=== PATIENT | female | born 1940 | race Hispanic/Latino ===

== ENCOUNTER 2017-01-12 10:58 | Emergency (ER) | payer MEDICARE, BC ==
[2017-01-12 12:18] LABS: HEMATOCRIT 40.8 % (37.0-47.0); IMMATURE GRANULOCYTES 0.1 % (0.0-1.0); MEAN CELL VOLUME 89.1 fL CALC (80.0-100.0); MEAN CORPUSCULAR HGB 28.4 pG CALC (26.0-32.0); MEAN CORPUSCULAR HGB CONC 31.9 g/L CALC (32.0-36.0); NEUT# 3.72 thou/uL (2.00-7.15); RED BLOOD COUNT 4.58 mill/uL (4.20-5.60); RED CELL DISTRI WIDTH 13.4 % (11.5-15.5)
[2017-01-12 12:29] LABS: ALBUMIN 4.1 g/dL (3.2-5.0); ALKALINE PHOSPHATASE 82 u/l (38-126); AMYLASE 82 u/l (30-110); ANION GAP 18 (6-22 (CALC)); BILIRUBIN, TOTAL 0.4 mg/dL (0.0-1.4); BUN 22 mg/dL (8-23); BUN/CREATININE RATIO 28 (12-20 (CALC)); CALCIUM 9.3 mg/dL (8.4-10.2); CARBON DIOXIDE 23 mmol/l (22-30); CHLORIDE 104 mmol/l (95-108); CREATININE 0.8 mg/dL (0.5-1.0); GFR > 60 ML/MIN (>=60 (CALC)); GFR FOR AFR.AMER. > 60 ML/MIN (>=60 (CALC)); GLUCOSE 227 mg/dL (82-115); LIPASE 183 u/l (23-300); POTASSIUM 4.7 mmol/l (3.5-5.1); SGOT/AST 26 u/l (9-36); SGPT/ALT 34 u/l (11-66); SODIUM 140 mmol/l (137-146); TOTAL PROTEIN 7.6 g/dL (6.3-8.2)
[2017-01-12 12:40] LABS: MYOGLOBIN 35 ng/mL (0 - 62)
[2017-01-12] MEDS ORDERED: METFORMIN500 MG PO (12:56)
[2017-01-12] MEDS ORDERED: OMEPRAZOLE10 MG PO (12:57)
[2017-01-12] MEDS ORDERED: DIOVAN80 MG PO (12:58)
[2017-01-12] MEDS ORDERED: SYNTHROID50 MCG PO (12:59)
[2017-01-12] MEDS ORDERED: GLIPIZIDE ER2.5 MG PO (12:59)
[2017-01-12] MEDS ORDERED: CYCLOBENZAPR10 MG PO (13:02)
[2017-01-12] MEDS ORDERED: SINGULAIR10 MG PO (13:02)
[2017-01-12] MEDS ORDERED: MIRTAZAPINE7.5 MG PO (13:03)
[2017-01-12] MEDS ORDERED: ADVAIR DISK1 (13:03)
[2017-01-12] MEDS ORDERED: CRESTOR40 MG PO (13:04)
[2017-01-12] MEDS ORDERED: METOPROL TAR25 MG PO (13:05)
[2017-01-12] MEDS ORDERED: KEFLEX500 MG PO (13:10)
[2017-01-12] MEDS ORDERED: BACTRIM DS1 TAB PO (13:11)
[2017-01-12] MEDS ORDERED: AUGMENTIN500TAB PO (14:20)
[2017-01-12] MEDS ORDERED: ZOFRAN4 MG/TAB PO (14:20)
[2017-01-12 14:45] VITALS: BP 115/53
== END 2017-01-12 15:00 | disposition home or self-care (01) ==
LOC: ED 10:58
PROVIDERS: Emergency Medicine
DX: L03.116 Cellulitis of left lower limb (principal); R11.2 Nausea with vomiting, unspecified; S80.862A Insect bite (nonvenomous), left lower leg, initial encounter; S80.861A Insect bite (nonvenomous), right lower leg, initial encounter; S90.862A Insect bite (nonvenomous), left foot, initial encounter; S90.861A Insect bite (nonvenomous), right foot, initial encounter; E11.9 Type 2 diabetes mellitus without complications; W57.XXXA Bitten or stung by nonvenomous insect and other nonvenomous arthropods, initial encounter
CPT/HCPCS: Q9967

== ENCOUNTER 2017-01-31 20:21 | Observation (INO) | payer MEDICARE, BC ==
[~2017-01-31] VITALS: Ht 144.8 cm; Wt 46.4 kg
[~2017-01-31 20:21] MED LIST: ADVAIR DISK1; AUGMENTIN500TAB PO; BACTRIM DS1 TAB PO; CRESTOR40 MG PO; CYCLOBENZAPR10 MG PO; DIOVAN80 MG PO; GLIPIZIDE ER2.5 MG PO; KEFLEX500 MG PO; METFORMIN500 MG PO; METOPROL TAR25 MG PO; MIRTAZAPINE7.5 MG PO; OMEPRAZOLE10 MG PO; SINGULAIR10 MG PO; SYNTHROID50 MCG PO; ZOFRAN4 MG/TAB PO
[2017-01-31 21:20] LABS: HEMATOCRIT 40.9 % (37.0-47.0); HEMOGLOBIN 13.3 g/dl (12.0-16.0); IMMATURE GRANULOCYTES 0.1 % (0.0-1.0); MEAN CELL VOLUME 87.8 fL CALC (80.0-100.0); MEAN CORPUSCULAR HGB 28.5 pG CALC (26.0-32.0); MEAN CORPUSCULAR HGB CONC 32.5 g/L CALC (32.0-36.0); NEUT# 4.7 thou/uL (2.00-7.15); RED BLOOD COUNT 4.66 mill/uL (4.20-5.60); RED CELL DISTRI WIDTH 13.5 % (11.5-15.5)
[2017-01-31 21:44] LABS: ALBUMIN 4.3 g/dL (3.2-5.0); ALKALINE PHOSPHATASE 88 u/l (38-126); ANION GAP 15 (6-22 (CALC)); BILIRUBIN, TOTAL 0.4 mg/dL (0.0-1.4); BUN 26 mg/dL (8-23); BUN/CREATININE RATIO 24 (12-20 (CALC)); CALCIUM 9.7 mg/dL (8.4-10.2); CARBON DIOXIDE 29 mmol/l (22-30); CHLORIDE 102 mmol/l (95-108); CREATININE 1.1 mg/dL (0.5-1.0); GFR 49 ML/MIN (>=60 (CALC)); GFR FOR AFR.AMER. 59 ML/MIN (>=60 (CALC)); GLUCOSE 194 mg/dL (82-115); POTASSIUM 4.4 mmol/l (3.5-5.1); SGOT/AST 28 u/l (9-36); SGPT/ALT 40 u/l (11-66); SODIUM 141 mmol/l (137-146); TOTAL PROTEIN 8.5 g/dL (6.3-8.2)
[2017-01-31 21:57] LABS: MYOGLOBIN 30 ng/mL (0 - 62)
[2017-01-31 22:19] LABS: URINE BILIRUBIN - DIPSTICK NEGATIVE (NEGATIVE); URINE BLOOD DIPSTICK TRACE-INTACT (NEGATIVE); URINE CLARITY CLEAR; URINE COLOR YELLOW; URINE GLUCOSE - DIPSTICK NEGATIVE (NEGATIVE); URINE KETONE NEGATIVE (NEGATIVE); URINE NITRITE - DIPSTICK NEGATIVE (Negative); URINE PROTEIN - DIPSTICK NEGATIVE (NEG-TRACE); URINE UROBILINOGEN - DIPSTICK 0.2 E.U./dL (0.2)
[2017-01-31 22:27] LABS: URINE LEUK ESTERASE SMALL (NEGATIVE)
[2017-01-31 22:28] LABS: URINE SQUAMOUS EPITHELIAL CELL FEW EPI/hpf (0-FEW)
[2017-02-01] VITALS: BP 192/62
[2017-02-01 01:19] VITALS: BP 161/64
[2017-02-01] MEDS ORDERED: GABAPENTIN100 MG PO (03:23)
[2017-02-01] MEDS ORDERED: LOPRESSOR25 M1 PO (03:24)
[2017-02-01] MEDS ORDERED: GLUCOTROL XL5 MG PO (03:26)
[2017-02-01] MEDS ORDERED: MIRTAZAPINE7.5 MG PO (03:26)
[2017-02-01] MEDS ORDERED: MONTELUKAST SOD10 MG PO (03:27)
[2017-02-01 04:25] VITALS: BP 144/66
[2017-02-01 08:57] VITALS: BP 134/60
[2017-02-01 11:24] VITALS: BP 132/59
[2017-02-01] MEDS ORDERED: SYMBICORT1 AE1 IN (14:49)
[2017-02-01] MEDS ORDERED: KEFLEX500 M1 PO (14:50)
== END 2017-02-01 15:15 | disposition home or self-care (01) ==
LOC: ED 20:21 → ED-I 22:04 → ED 22:20 → MS2 22:21
PROVIDERS: Emergency Medicine; ADMIT Internal Medicine; ATTEND Internal Medicine
DX: R00.2 Palpitations (principal); R07.9 Chest pain, unspecified; R68.84 Jaw pain; E11.9 Type 2 diabetes mellitus without complications; I10 Essential (primary) hypertension; E03.9 Hypothyroidism, unspecified; J45.909 Unspecified asthma, uncomplicated; K21.9 Gastro-esophageal reflux disease without esophagitis; S81.802A Unspecified open wound, left lower leg, initial encounter; L08.9 Local infection of the skin and subcutaneous tissue, unspecified; X58.XXXA Exposure to other specified factors, initial encounter; Z86.73 Personal history of transient ischemic attack (TIA), and cerebral infarction without residual deficits

== ENCOUNTER 2018-02-23 17:17 | Emergency (ER) | payer MEDICARE, BC ==
[~2018-02-23] VITALS: Ht 144.8 cm; Wt 43.2 kg
[~2018-02-23 17:17] MED LIST changes: +ASPIRIN81 MG PO; +GABAPENTIN100 MG PO; +GLUCOTROL XL5 MG PO; +KEFLEX500 M1 PO; +LOPRESSOR25 M1 PO; +MONTELUKAST SOD10 MG PO; +SYMBICORT1 AE1 IN; +XANAX0.25 MG PO
[2018-02-23] MEDS ORDERED: CITALOPRAM20 MG PO (17:31)
[2018-02-23] MEDS ORDERED: DIOVAN80 MG PO (17:33)
[2018-02-23] MEDS ORDERED: ADVAIR DISK1 INH (17:33)
[2018-02-23] MEDS ORDERED: ATORVASTATIN CA20 MG PO (17:33)
[2018-02-23] MEDS ORDERED: PROAIR HFA108 MCG/AC (17:34)
[2018-02-23 17:57] LABS: HEMATOCRIT 38.9 % (37.0-47.0); HEMOGLOBIN 12.5 g/dl (12.0-16.0); IMMATURE GRANULOCYTES 0.2 % (0.0-5.0); MEAN CELL VOLUME 89.6 fL CALC (80.0-100.0); MEAN CORPUSCULAR HGB 28.8 pG CALC (26.0-32.0); MEAN CORPUSCULAR HGB CONC 32.1 g/L CALC (32.0-36.0); NEUT# 5.04 thou/uL (2.00-7.15); RED BLOOD COUNT 4.34 mill/uL (4.20-5.60); RED CELL DISTRI WIDTH 12.7 % (11.5-15.5)
[2018-02-23 18:03] LABS: URINE BILIRUBIN - DIPSTICK NEGATIVE (NEGATIVE); URINE BLOOD DIPSTICK SMALL (NEGATIVE); URINE COLOR YELLOW; URINE GLUCOSE - DIPSTICK NEGATIVE (NEGATIVE); URINE KETONE NEGATIVE (NEGATIVE); URINE LEUK ESTERASE NEGATIVE (NEGATIVE); URINE NITRITE - DIPSTICK NEGATIVE (Negative); URINE PH 7.5 (4.5-8.0); URINE PROTEIN - DIPSTICK NEGATIVE (NEG-TRACE); URINE UROBILINOGEN - DIPSTICK 0.2 E.U./dL (0.2)
[2018-02-23 18:10] LABS: URINE CLARITY CLEAR
[2018-02-23 18:11] LABS: URINE SQUAMOUS EPITHELIAL CELL FEW EPI/hpf (0-FEW); URINE WBC 0-2 WBC/hpf (0-5)
[2018-02-23 18:19] LABS: ALBUMIN 3.9 g/dL (3.2-5.0); ALKALINE PHOSPHATASE 70 u/l (38-126); ANION GAP 12 (6-22 (CALC)); BILIRUBIN, TOTAL 0.2 mg/dL (0.0-1.4); BUN 21 mg/dL (8-23); BUN/CREATININE RATIO 28 (12-20 (CALC)); CARBON DIOXIDE 29 mmol/l (22-30); CHLORIDE 103 mmol/l (95-108); CREATININE 0.8 mg/dL (0.5-1.0); GFR > 60 ML/MIN (>=60 (CALC)); GFR FOR AFR.AMER. > 60 ML/MIN (>=60 (CALC)); LIPASE 212 u/l (23-300); POTASSIUM 4.3 mmol/l (3.5-5.1); SGOT/AST 24 u/l (9-36); SODIUM 140 mmol/l (137-146); TOTAL PROTEIN 7.3 g/dL (6.3-8.2)
[2018-02-23] MEDS ORDERED: PEPCID20 MG PO (20:07)
[2018-02-23] MEDS ORDERED: CIPROFLOXACN500 MG PO (20:07)
[2018-02-23 20:19] VITALS: BP 173/79
== END 2018-02-23 20:21 | disposition home or self-care (01) ==
LOC: ED 17:17
PROVIDERS: Family Medicine
DX: R10.33 Periumbilical pain (principal); M54.5 Low back pain; I10 Essential (primary) hypertension
CPT/HCPCS: Q9967

== ENCOUNTER 2018-07-09 15:02 | Emergency (ER) | payer MEDICARE, BC ==
[~2018-07-09] VITALS: Ht 144.8 cm; Wt 55.0 kg
[~2018-07-09 15:02] MED LIST changes: +ADVAIR DISK1 INH; +ATORVASTATIN CA20 MG PO; +CIPROFLOXACN500 MG PO; +CITALOPRAM20 MG PO; +PEPCID20 MG PO; +PROAIR HFA108 MCG/AC
[2018-07-09 17:42] LABS: HEMOGLOBIN 12.7 g/dl (12.0-16.0); IMMATURE GRANULOCYTES 0.1 % (0.0-5.0); MEAN CELL VOLUME 89.5 fL CALC (80.0-100.0); MEAN CORPUSCULAR HGB 28.4 pG CALC (26.0-32.0); MEAN CORPUSCULAR HGB CONC 31.8 g/L CALC (32.0-36.0); NEUT# 4.94 thou/uL (2.00-7.15); RED BLOOD COUNT 4.47 mill/uL (4.20-5.60); RED CELL DISTRI WIDTH 13.1 % (11.5-15.5)
[2018-07-09 18:02] LABS: ALBUMIN 3.9 g/dL (3.2-5.0); ALKALINE PHOSPHATASE 68 u/l (38-126); ANION GAP 14 (6-22 (CALC)); BILIRUBIN, TOTAL 0.5 mg/dL (0.0-1.4); BUN 14 mg/dL (8-23); BUN/CREATININE RATIO 19 (12-20 (CALC)); CARBON DIOXIDE 31 mmol/l (22-30); CHLORIDE 96 mmol/l (95-108); CREATININE 0.7 mg/dL (0.5-1.0); GFR > 60 ML/MIN (>=60 (CALC)); GFR FOR AFR.AMER. > 60 ML/MIN (>=60 (CALC)); POTASSIUM 4.9 mmol/l (3.5-5.1); SGOT/AST 21 u/l (9-36); SODIUM 136 mmol/l (137-146); TOTAL PROTEIN 7.1 g/dL (6.3-8.2)
[2018-07-09 18:54] LABS: URINE BILIRUBIN - DIPSTICK NEGATIVE (NEGATIVE); URINE BLOOD DIPSTICK SMALL (NEGATIVE); URINE COLOR YELLOW; URINE GLUCOSE - DIPSTICK NEGATIVE (NEGATIVE); URINE KETONE NEGATIVE (NEGATIVE); URINE LEUK ESTERASE NEGATIVE (NEGATIVE); URINE NITRITE - DIPSTICK NEGATIVE (Negative); URINE PH 6.5 (4.5-8.0); URINE PROTEIN - DIPSTICK NEGATIVE (NEG-TRACE); URINE UROBILINOGEN - DIPSTICK 0.2 E.U./dL (0.2)
[2018-07-09 19:02] LABS: URINE SQUAMOUS EPITHELIAL CELL FEW EPI/hpf (0-FEW)
[2018-07-09] MEDS ORDERED: BUPROPION150 M4 PO (19:08)
[2018-07-09] MEDS ORDERED: SYNTHROID50 MCG PO (19:13)
[2018-07-09] MEDS ORDERED: METFORMIN500 MG PO (19:14)
[2018-07-09] MEDS ORDERED: METOPROL TAR25 M1 PO (19:14)
[2018-07-10 00:39] VITALS: BP 112/54
== END 2018-07-10 00:40 | disposition home or self-care (01) ==
LOC: ED 15:02
PROVIDERS: Emergency Medicine
DX: R53.1 Weakness (principal); R50.9 Fever, unspecified; R51 Headache; I10 Essential (primary) hypertension; E11.9 Type 2 diabetes mellitus without complications; J45.909 Unspecified asthma, uncomplicated; Z86.73 Personal history of transient ischemic attack (TIA), and cerebral infarction without residual deficits; R22.0 Localized swelling, mass and lump, head
CPT/HCPCS: Q9967

== ENCOUNTER 2018-07-12 14:46 | Emergency (ER) | payer MEDICARE, BC ==
[~2018-07-12] VITALS: Ht 144.8 cm; Wt 44.5 kg
[~2018-07-12 14:46] MED LIST changes: +BUPROPION150 M4 PO; +METOPROL TAR25 M1 PO
[2018-07-12 15:36] LABS: HEMATOCRIT 35.7 % (37.0-47.0); HEMOGLOBIN 11.3 g/dl (12.0-16.0); IMMATURE GRANULOCYTES 0.3 % (0.0-5.0); MEAN CELL VOLUME 90.8 fL CALC (80.0-100.0); MEAN CORPUSCULAR HGB 28.8 pG CALC (26.0-32.0); MEAN CORPUSCULAR HGB CONC 31.7 g/L CALC (32.0-36.0); NEUT# 4.42 thou/uL (2.00-7.15); RED BLOOD COUNT 3.93 mill/uL (4.20-5.60); RED CELL DISTRI WIDTH 13.4 % (11.5-15.5)
[2018-07-12 15:50] LABS: ALBUMIN 3.9 g/dL (3.2-5.0); ALKALINE PHOSPHATASE 77 u/l (38-126); ANION GAP 16 (6-22 (CALC)); BILIRUBIN, TOTAL 0.3 mg/dL (0.0-1.4); BUN 16 mg/dL (8-23); BUN/CREATININE RATIO 15 (12-20 (CALC)); CARBON DIOXIDE 27 mmol/l (22-30); CHLORIDE 100 mmol/l (95-108); CREATININE 1.1 mg/dL (0.5-1.0); GFR 48 ML/MIN (>=60 (CALC)); GFR FOR AFR.AMER. 58 ML/MIN (>=60 (CALC)); POTASSIUM 4.9 mmol/l (3.5-5.1); SGOT/AST 30 u/l (9-36); SODIUM 138 mmol/l (137-146); TOTAL PROTEIN 7.6 g/dL (6.3-8.2)
[2018-07-12 16:20] LABS: TSH, 3RD GENERATION 2.82 uIU/mL (0.47 - 4.68)
[2018-07-12 17:24] LABS: URINE BILIRUBIN - DIPSTICK NEGATIVE (NEGATIVE); URINE BLOOD DIPSTICK MODERATE (NEGATIVE); URINE COLOR YELLOW; URINE GLUCOSE - DIPSTICK NEGATIVE (NEGATIVE); URINE KETONE NEGATIVE (NEGATIVE); URINE LEUK ESTERASE NEGATIVE (NEGATIVE); URINE NITRITE - DIPSTICK NEGATIVE (Negative); URINE PH 6.5 (4.5-8.0); URINE PROTEIN - DIPSTICK NEGATIVE (NEG-TRACE); URINE SPECIFIC GRAVITY 1.015; URINE UROBILINOGEN - DIPSTICK 0.2 E.U./dL (0.2)
[2018-07-12 17:36] LABS: URINE SQUAMOUS EPITHELIAL CELL FEW EPI/hpf (0-FEW); URINE WBC 0-2 WBC/hpf (0-5)
[2018-07-12] MEDS ORDERED: KEFLEX500 M1 PO (18:05)
[2018-07-12 18:07] VITALS: BP 124/65
== END 2018-07-12 18:15 | disposition home or self-care (01) ==
LOC: ED 14:46
PROVIDERS: Emergency Medicine
DX: R53.1 Weakness (principal); R50.9 Fever, unspecified; R51 Headache; Z86.73 Personal history of transient ischemic attack (TIA), and cerebral infarction without residual deficits; I10 Essential (primary) hypertension

== ENCOUNTER 2019-01-09 09:20 | Emergency (ER) | payer MEDICARE, BC ==
[~2019-01-09] VITALS: Ht 144.8 cm; Wt 47.0 kg
[~2019-01-09 09:20] MED LIST changes: -PROAIR HFA108 MCG/AC; +PROAIR HFA108 MCG/AC IN
[2019-01-09 11:01] LABS: HEMATOCRIT 43.4 % (37.0-47.0); HEMOGLOBIN 13.5 g/dl (12.0-16.0); IMMATURE GRANULOCYTES 0.1 % (0.0-5.0); MEAN CELL VOLUME 88.8 fL CALC (80.0-100.0); MEAN CORPUSCULAR HGB 27.6 pG CALC (26.0-32.0); MEAN CORPUSCULAR HGB CONC 31.1 g/L CALC (32.0-36.0); NEUT# 4.36 thou/uL (2.00-7.15); RED BLOOD COUNT 4.89 mill/uL (4.20-5.60); RED CELL DISTRI WIDTH 13.9 % (11.5-15.5)
[2019-01-09 11:01] LABS: URINE BILIRUBIN - DIPSTICK NEGATIVE (NEGATIVE); URINE BLOOD DIPSTICK TRACE-INTACT (NEGATIVE); URINE COLOR YELLOW; URINE GLUCOSE - DIPSTICK NEGATIVE (NEGATIVE); URINE KETONE NEGATIVE (NEGATIVE); URINE LEUK ESTERASE NEGATIVE (NEGATIVE); URINE NITRITE - DIPSTICK NEGATIVE (Negative); URINE PROTEIN - DIPSTICK NEGATIVE (NEG-TRACE); URINE UROBILINOGEN - DIPSTICK 0.2 E.U./dL (0.2)
[2019-01-09 11:11] LABS: ALBUMIN 4.3 g/dL (3.2-5.0); ALKALINE PHOSPHATASE 77 u/l (38-126); ANION GAP 11 (6-22 (CALC)); BILIRUBIN, TOTAL 0.4 mg/dL (0.0-1.4); BUN 29 mg/dL (8-23); BUN/CREATININE RATIO 27 (12-20 (CALC)); CARBON DIOXIDE 31 mmol/l (22-30); CHLORIDE 107 mmol/l (95-108); CREATININE 1.1 mg/dL (0.5-1.0); GFR 48 ML/MIN (>=60 (CALC)); GFR FOR AFR.AMER. 58 ML/MIN (>=60 (CALC)); POTASSIUM 4.7 mmol/l (3.5-5.1); SGOT/AST 32 u/l (9-36); SODIUM 144 mmol/l (137-146); TOTAL PROTEIN 8.2 g/dL (6.3-8.2)
[2019-01-09] MEDS ORDERED: VICODIN1 TA1 PO (12:10)
[2019-01-09 12:18] VITALS: BP 176/77
== END 2019-01-09 12:27 | disposition home or self-care (01) ==
LOC: ED 09:20
DX: S22.070A Wedge compression fracture of T9-T10 vertebra, initial encounter for closed fracture (principal); J90 Pleural effusion, not elsewhere classified; E11.9 Type 2 diabetes mellitus without complications; I10 Essential (primary) hypertension; V93.39XA Fall on board unspecified watercraft, initial encounter; Z86.73 Personal history of transient ischemic attack (TIA), and cerebral infarction without residual deficits; Z79.84 Long term (current) use of oral hypoglycemic drugs

== ENCOUNTER 2019-03-08 09:30 | Emergency (ER) | payer MEDICARE, BC ==
[~2019-03-08] VITALS: Ht 144.8 cm; Wt 43.2 kg
[~2019-03-08 09:30] MED LIST changes: +VICODIN1 TA1 PO
[2019-03-08] MEDS ORDERED: OMEGA-1 PO (09:45)
[2019-03-08] MEDS ORDERED: ALPRAZOLAM0.25 M1 PO (09:46)
[2019-03-08 10:44] LABS: HEMATOCRIT 40.7 % (37.0-47.0); HEMOGLOBIN 12.6 g/dl (12.0-16.0); IMMATURE GRANULOCYTES 0.3 % (0.0-5.0); MEAN CELL VOLUME 91.7 fL CALC (80.0-100.0); MEAN CORPUSCULAR HGB 28.4 pG CALC (26.0-32.0); NEUT# 3.97 thou/uL (2.00-7.15); RED BLOOD COUNT 4.44 mill/uL (4.20-5.60); RED CELL DISTRI WIDTH 13.8 % (11.5-15.5)
[2019-03-08 11:04] LABS: ALBUMIN 4.1 g/dL (3.2-5.0); ALKALINE PHOSPHATASE 83 u/l (38-126); ANION GAP 13 (6-22 (CALC)); BILIRUBIN, TOTAL 0.4 mg/dL (0.0-1.4); BUN 21 mg/dL (8-23); BUN/CREATININE RATIO 27 (12-20 (CALC)); CARBON DIOXIDE 26 mmol/l (22-30); CHLORIDE 104 mmol/l (95-108); CREATININE 0.8 mg/dL (0.5-1.0); GFR > 60 ML/MIN (>=60 (CALC)); GFR FOR AFR.AMER. > 60 ML/MIN (>=60 (CALC)); POTASSIUM 4.5 mmol/l (3.5-5.1); SGOT/AST 29 u/l (9-36); SODIUM 138 mmol/l (137-146)
[2019-03-08 11:16] LABS: MYOGLOBIN 42 ng/mL (0 - 62)
[2019-03-08 11:17] LABS: URINE BILIRUBIN - DIPSTICK NEGATIVE (NEGATIVE); URINE BLOOD DIPSTICK TRACE-LYSED (NEGATIVE); URINE COLOR YELLOW; URINE GLUCOSE - DIPSTICK NEGATIVE (NEGATIVE); URINE KETONE NEGATIVE (NEGATIVE); URINE LEUK ESTERASE NEGATIVE (NEGATIVE); URINE NITRITE - DIPSTICK NEGATIVE (Negative); URINE PH 6.5 (4.5-8.0); URINE PROTEIN - DIPSTICK NEGATIVE (NEG-TRACE); URINE SPECIFIC GRAVITY <=1.005; URINE UROBILINOGEN - DIPSTICK 0.2 E.U./dL (0.2)
[2019-03-08 11:39] VITALS: BP 157/70
== END 2019-03-08 12:14 | disposition home or self-care (01) ==
LOC: ED 09:30
PROVIDERS: Family Medicine
DX: R53.1 Weakness (principal); E11.9 Type 2 diabetes mellitus without complications; I10 Essential (primary) hypertension; Z86.73 Personal history of transient ischemic attack (TIA), and cerebral infarction without residual deficits; Z79.84 Long term (current) use of oral hypoglycemic drugs

== ENCOUNTER 2019-05-01 20:48 | Emergency (ER) | payer MEDICARE, BC ==
[~2019-05-01] VITALS: Ht 144.8 cm; Wt 43.2 kg
[~2019-05-01 20:48] MED LIST changes: +ALPRAZOLAM0.25 M1 PO; +OMEGA-1 PO; +REMERON15 MG PO
[2019-05-01 21:21] LABS: HEMATOCRIT 43.2 % (37.0-47.0); HEMOGLOBIN 13.9 g/dl (12.0-16.0); IMMATURE GRANULOCYTES 0.3 % (0.0-5.0); MEAN CELL VOLUME 88.5 fL CALC (80.0-100.0); MEAN CORPUSCULAR HGB 28.5 pG CALC (26.0-32.0); MEAN CORPUSCULAR HGB CONC 32.2 g/L CALC (32.0-36.0); NEUT# 11.3 thou/uL (2.00-7.15); RED BLOOD COUNT 4.88 mill/uL (4.20-5.60); RED CELL DISTRI WIDTH 12.8 % (11.5-15.5)
[2019-05-01 21:33] LABS: ALBUMIN 4.7 g/dL (3.2-5.0); ALKALINE PHOSPHATASE 110 u/l (38-126); ANION GAP 18 (6-22 (CALC)); BILIRUBIN, TOTAL 0.4 mg/dL (0.0-1.4); BUN 21 mg/dL (8-23); BUN/CREATININE RATIO 34 (12-20 (CALC)); CARBON DIOXIDE 27 mmol/l (22-30); CHLORIDE 99 mmol/l (95-108); CREATININE 0.6 mg/dL (0.5-1.0); GFR > 60 ML/MIN (>=60 (CALC)); GFR FOR AFR.AMER. > 60 ML/MIN (>=60 (CALC)); POTASSIUM 4.5 mmol/l (3.5-5.1); SGOT/AST 27 u/l (9-36); SODIUM 139 mmol/l (137-146); TOTAL PROTEIN 8.9 g/dL (6.3-8.2)
[2019-05-02 00:38] VITALS: BP 165/70
[2019-05-02 00:54] LABS: URINE BILIRUBIN - DIPSTICK NEGATIVE (NEGATIVE); URINE BLOOD DIPSTICK TRACE-INTACT (NEGATIVE); URINE COLOR YELLOW; URINE GLUCOSE - DIPSTICK >=1000 mg/dL (NEGATIVE); URINE KETONE 15 mg/dL (NEGATIVE); URINE LEUK ESTERASE NEGATIVE (NEGATIVE); URINE NITRITE - DIPSTICK NEGATIVE (Negative); URINE PROTEIN - DIPSTICK NEGATIVE (NEG-TRACE); URINE UROBILINOGEN - DIPSTICK 0.2 E.U./dL (0.2)
== END 2019-05-02 00:37 | disposition home or self-care (01) ==
LOC: ED 20:48
PROVIDERS: Emergency Medicine
DX: J45.909 Unspecified asthma, uncomplicated (principal); E11.9 Type 2 diabetes mellitus without complications; I10 Essential (primary) hypertension; Z86.73 Personal history of transient ischemic attack (TIA), and cerebral infarction without residual deficits; Z79.84 Long term (current) use of oral hypoglycemic drugs; R06.02 Shortness of breath

== ENCOUNTER 2019-05-04 10:01 | Observation (INO) | payer MEDICARE, BC ==
[~2019-05-04] VITALS: Ht 144.8 cm; Wt 44.0 kg
--- NOTE | 2019-05-04 10:19 | NUR ---
PT TO ROOM FOR EXAM
[2019-05-04 11:12] LABS: HEMATOCRIT 47.3 % (37.0-47.0); HEMOGLOBIN 14.8 g/dl (12.0-16.0); IMMATURE GRANULOCYTES 0.3 % (0.0-5.0); MEAN CELL VOLUME 89.8 fL CALC (80.0-100.0); MEAN CORPUSCULAR HGB 28.1 pG CALC (26.0-32.0); MEAN CORPUSCULAR HGB CONC 31.3 g/L CALC (32.0-36.0); NEUT# 9.02 thou/uL (2.00-7.15); RED BLOOD COUNT 5.27 mill/uL (4.20-5.60); RED CELL DISTRI WIDTH 13.2 % (11.5-15.5)
--- NOTE | 2019-05-04 11:25 | NUR ---
PT SITTING UP HI FOWLERS. NEB TX COMPLETED. IV ABT INFUSING. PT W/EVEN UNLABORED RESPIRATIONS. SPEECH CLEAR. REPORTS FEELING IMPROVED.
[2019-05-04 11:34] LABS: BUN 29 mg/dL (8-23); BUN/CREATININE RATIO 37 (12-20 (CALC)); CARBON DIOXIDE 29 mmol/l (22-30); CHLORIDE 98 mmol/l (95-108); CREATININE 0.8 mg/dL (0.5-1.0); GFR > 60 ML/MIN (>=60 (CALC)); GFR FOR AFR.AMER. > 60 ML/MIN (>=60 (CALC)); SODIUM 137 mmol/l (137-146)
[2019-05-04 11:36] LABS: ANION GAP 16 (6-22 (CALC))
[2019-05-04 11:37] LABS: POTASSIUM 5.6 mmol/l (3.5-5.1)
--- NOTE | 2019-05-04 12:09 | NUR ---
PT ASSISTED TO BSC. TOLERATED WELL. VOIDED APPROX 700 ML CLEAR URINE. RETURNED TO STRETCHER NO CHANGE IN SATS.
[2019-05-04 12:47] LABS: URINE BILIRUBIN - DIPSTICK NEGATIVE (NEGATIVE); URINE BLOOD DIPSTICK TRACE-INTACT (NEGATIVE); URINE COLOR YELLOW; URINE GLUCOSE - DIPSTICK >=1000 mg/dL (NEGATIVE); URINE KETONE NEGATIVE (NEGATIVE); URINE LEUK ESTERASE NEGATIVE (NEGATIVE); URINE NITRITE - DIPSTICK NEGATIVE (Negative); URINE PROTEIN - DIPSTICK NEGATIVE (NEG-TRACE); URINE UROBILINOGEN - DIPSTICK 0.2 E.U./dL (0.2)
--- NOTE | 2019-05-04 14:25 | NUR ---
PT W/RESP EVEN AND UNLABORED. SATS 95 2L/M VIA NC.
--- NOTE | 2019-05-04 15:25 | NUR ---
RX CONTACTED AND CONSULTED FOR MEDICATION RECONCILIATION.
--- NOTE | 2019-05-04 15:27 | NUR ---
REPORT CALLED TO BILL OH, ON MEDSURG. ADVISED OF ALL MEDS, TX. ATTACHMENTS
[2019-05-04 15:38] VITALS: BP 146/63
--- NOTE | 2019-05-04 15:58 | NUR ---
ASSESSMENT DONE. PT IS A&O X2 BUT FORGETFUL AT TIMES. SON IN ROOM TO HELP WITH QUESTIONS. PT LUNGS SOUND COARSE/WHEEZE. TELE IN PLACE. SON WANTS US TO USE PT OWN MEDICATION . EXPLAIN TO PT IF WE CARRY THE MEDICATION THEN WE CAN'T USE THE HOME MEDICATIONS. SAFETY PRECAUTIONS REINFORCED AND CALL LIGHT IN REACH.
[2019-05-04] MEDS ORDERED: MEGARED OMEGA-31 CAP PO (16:06)
[2019-05-04] MEDS ORDERED: MEDDOSEPAK PO (16:12)
--- NOTE | 2019-05-04 16:32 | NUR ---
RX CONSULTED AND CALLED FOR MEDICATION RECONCILIATION
--- NOTE | 2019-05-04 19:00 | NUR ---
REPORT FROM SERENA KHAN. PT SITTING UP IN BED. ALERT AND ORIENTED AT THIS TIME. SERENA TO TRANSLATE. PT DENIES ANY PAIN OR ANY CURRENT WANTS OR NEEDS. DISCUSSED POC. PT VERBALIZED UNDERSTANDING. CALL LIGHT WITHIN REACH. WILL CONTINUE TO MONITOR.
[2019-05-04 19:05] VITALS: BP 123/70
--- NOTE | 2019-05-04 23:15 | NUR ---
PT RESTING IN BED. NO APPARENT DISTRESS NOTED. ELIZABETH MARTÍNEZ TRANSLATED. PT DENIES ANY PAIN OR DISCOMFORT. CALL LIGHT WITHIN REACH. WILL CONTINUE TO MONITOR.
[2019-05-04 23:54] VITALS: BP 145/66
--- NOTE | 2019-05-05 03:46 | NUR ---
PT RESTING IN BED WITH EYES CLOSED. NO APPARENT DISTRESS NOTED. CALL LIGHT WITHIN REACH. WILL CONTINUE TO MONITOR.
[2019-05-05 03:47] VITALS: BP 123/68
[2019-05-05 04:49] LABS: HEMATOCRIT 41.8 % (37.0-47.0); HEMOGLOBIN 13.4 g/dl (12.0-16.0); IMMATURE GRANULOCYTES 0.3 % (0.0-5.0); MEAN CELL VOLUME 87.8 fL CALC (80.0-100.0); MEAN CORPUSCULAR HGB 28.2 pG CALC (26.0-32.0); MEAN CORPUSCULAR HGB CONC 32.1 g/L CALC (32.0-36.0); NEUT# 12.1 thou/uL (2.00-7.15); RED BLOOD COUNT 4.76 mill/uL (4.20-5.60)
[2019-05-05 05:12] LABS: ANION GAP 14 (6-22 (CALC)); BUN 21 mg/dL (8-23); BUN/CREATININE RATIO 33 (12-20 (CALC)); CARBON DIOXIDE 26 mmol/l (22-30); CHLORIDE 100 mmol/l (95-108); CREATININE 0.7 mg/dL (0.5-1.0); GFR > 60 ML/MIN (>=60 (CALC)); GFR FOR AFR.AMER. > 60 ML/MIN (>=60 (CALC)); POTASSIUM 5.1 mmol/l (3.5-5.1); SODIUM 135 mmol/l (137-146)
[2019-05-05 05:13] LABS: MAGNESIUM 2.4 mg/dL (1.6-2.3)
[2019-05-05 07:45] VITALS: BP 118/67
--- NOTE | 2019-05-05 07:50 | NUR ---
ASSESSMENT IS COMPLETED: IV SITE IS FREE FROM REDNESS OR EDEMA. HR IS REG,PULSES ARE STRONG X4, ABD IS SOFT WITH ACTIVE BS. BREATH SOUNDS ARE COARSE, O2 @ 2LITERS WITH NC. TELE MONITOR IN PLACE., CONTINUE TO OSEBRVE AND MONITOR.
[2019-05-05 10:53] VITALS: BP 179/54
--- NOTE | 2019-05-05 12:44 | NUR ---
PT IS SITTING IN THE CHAIR. NO DISTRESS NOTED. IV SITE IS FREE FROM REDNESS OR EDEMA. CONTINUE TO OBSERVE AND MONITOR.
[2019-05-05 15:17] VITALS: BP 148/59
--- NOTE | 2019-05-05 16:00 | NUR ---
PT IS RELAXING IN BED HAS BEEN IN THE CHAIR, NO DISTRESS NOTED. IV SITE IS FREE FROM REDNESS OR EDEAM.
[2019-05-05 19:05] VITALS: BP 150/65
--- NOTE | 2019-05-05 19:20 | NUR ---
REPORT RECEIVED FROM EDUIN NARVAEZ. PT RESTING IN BED, SON AT BEDSIDE. SAFETY PRECAUTIONS IN PLACE. WILL CONTINUE TO MONITOR.
--- NOTE | 2019-05-05 21:15 | NUR ---
PT RESTING IN BED. ALERT AND ORIENTED. RESPIRATIONS EVEN AND UNLABORED ON RA. WHEEZES NOTED THROUGH OUT LUNGS. PEDAL PULSES STRONG. PT DENIES ANY PAIN OR DISCOMFORT AT THIS TIME. SAFETY PRECAUTIONS IN PLACE. WILL CONTINUE TO MONITOR.
[2019-05-06 00:10] VITALS: BP 141/57
--- NOTE | 2019-05-06 00:12 | NUR ---
PT RESTING IN BED. NO S/S OF DISTRESS AT THIS TIME. SAFETY PRECAUTIONS IN PLACE. WILL CONTINUE TO MONITOR.
[2019-05-06 03:45] VITALS: BP 132/65
--- NOTE | 2019-05-06 04:02 | NUR ---
PT RESTING IN BED. TELE IN PLACE. RESPIRATIONS EVEN AND UNLABORED. NO S/S OF DISTRESS AT THIS TIME. WILL CONTINUE TO MONITOR.
[2019-05-06 05:24] LABS: HEMATOCRIT 43.1 % (37.0-47.0); HEMOGLOBIN 13.6 g/dl (12.0-16.0); MEAN CELL VOLUME 89.8 fL CALC (80.0-100.0); MEAN CORPUSCULAR HGB 28.3 pG CALC (26.0-32.0); MEAN CORPUSCULAR HGB CONC 31.6 g/L CALC (32.0-36.0); NEUT# 21.55 thou/uL (2.00-7.15); RED BLOOD COUNT 4.8 mill/uL (4.20-5.60); RED CELL DISTRI WIDTH 13.5 % (11.5-15.5)
[2019-05-06 05:47] LABS: BUN 24 mg/dL (8-23); BUN/CREATININE RATIO 41 (12-20 (CALC)); CARBON DIOXIDE 25 mmol/l (22-30); CHLORIDE 103 mmol/l (95-108); CREATININE 0.6 mg/dL (0.5-1.0); GFR > 60 ML/MIN (>=60 (CALC)); GFR FOR AFR.AMER. > 60 ML/MIN (>=60 (CALC)); MAGNESIUM 2.2 mg/dL (1.6-2.3); SODIUM 138 mmol/l (137-146)
[2019-05-06 06:16] LABS: ANION GAP 15 (6-22 (CALC))
[2019-05-06 06:17] LABS: POTASSIUM 5.4 mmol/l (3.5-5.1)
[2019-05-06 08:25] VITALS: BP 173/67
--- NOTE | 2019-05-06 08:25 | NUR ---
ASSESSMENT IS COMPLETED: IV SITE IS FREE FROM REDNESS OR EDEMA. HR IS REG,PULSES ARE STRONG X4, ABD IS SOFT WITH ACTIVE BS. BREATH SOUNDS ARE CLEAR,BILATERALLY. NO C/O SOB, TELE MONITOR IN PLACE. CONTINUE TO OSEBRVE AND MONITOR.
[2019-05-06 11:00] VITALS: BP 149/72
--- NOTE | 2019-05-06 11:29 | NUR ---
PT TELE MONITOR SHOWED HRT RATE OF 152 AND EKG RAPID RESPONSE IN THE ROOM. PT CONVERTED TO SR AFTER BEARING DOWN AND COUGING ABLE TO CONVERT TO SR FROM ST. PT TOLERATING WELL,
--- NOTE | 2019-05-06 12:15 | NUR ---
PT HAS BEEN RELAXING IN BED WITH NO DISTRESS NOTED. IV SITE IS FREE FROM REDNESS ORE FELI.
[2019-05-06 15:00] VITALS: BP 130/69
--- NOTE | 2019-05-06 16:15 | NUR ---
PT IS RELAXING IN BED WITH NO DISTRESS NOTED.
[2019-05-06] MEDS ORDERED: METOPROL TAR25 MG PO (17:52)
[2019-05-06] MEDS ORDERED: IPRATROPIU0.5 MG/3 M IN (17:52)
[2019-05-06] MEDS ORDERED: ONDANSETRON4 MG PO (18:02)
--- NOTE | 2019-05-06 18:20 | NUR ---
IV SITES ARE DISCONTINUED CATHETER INTACT. NO REDNESS OR EDEMA. DISCHARGE INSTRUCTIONS GIVEN TO FAMILY AND VERBALIZED UNDERSTANDING., PT ANXIOUS TO GO HOME. ABLE TO AMBULATE TO THE BATHROOM TO GET DRESSED. Discharge instructions given. Patient verbalizes understanding of same. Discharged in stable condition via Wheelchair to Home with family. All belongings sent with pt.
== END 2019-05-06 18:30 | disposition home or self-care (01) ==
LOC: ED 10:01 → ED-I 11:58 → ED 11:58 → ED-I 11:58 → ED 12:01 → ED-I 12:02 → MS2 12:02
PROVIDERS: Family Medicine; Nurse Practitioner Family; ADMIT Internal Medicine; ATTEND Internal Medicine
PROC: 3E02340 Introduction of Influenza Vaccine into Muscle, Percutaneous Approach (ICD-10-PCS; principal; 2019-05-05)
PROC: 3E0234Z Introduction of Serum, Toxoid and Vaccine into Muscle, Percutaneous Approach (ICD-10-PCS; 2019-05-05)
DX: J45.901 Unspecified asthma with (acute) exacerbation (principal); I47.1 Supraventricular tachycardia; J44.9 Chronic obstructive pulmonary disease, unspecified; I10 Essential (primary) hypertension; E11.40 Type 2 diabetes mellitus with diabetic neuropathy, unspecified; E78.5 Hyperlipidemia, unspecified; E89.0 Postprocedural hypothyroidism; K21.9 Gastro-esophageal reflux disease without esophagitis; F41.9 Anxiety disorder, unspecified; F32.9 Major depressive disorder, single episode, unspecified; Z23 Encounter for immunization; Z79.84 Long term (current) use of oral hypoglycemic drugs; Z86.73 Personal history of transient ischemic attack (TIA), and cerebral infarction without residual deficits; Z63.4 Disappearance and death of family member
CPT/HCPCS: G0378; J1650

== ENCOUNTER 2019-05-14 10:30 | Observation (INO) | payer MEDICARE, BC ==
[~2019-05-14] VITALS: Ht 144.8 cm; Wt 43.5 kg
[~2019-05-14 10:30] MED LIST changes: +IPRATROPIU0.5 MG/3 M IN; +MEDDOSEPAK PO; +MEGARED OMEGA-31 CAP PO; +ONDANSETRON4 MG PO
[2019-05-14 11:22] LABS: HEMATOCRIT 41.1 % (37.0-47.0); HEMOGLOBIN 13.1 g/dl (12.0-16.0); IMMATURE GRANULOCYTES 0.5 % (0.0-5.0); MEAN CELL VOLUME 88.8 fL CALC (80.0-100.0); MEAN CORPUSCULAR HGB 28.3 pG CALC (26.0-32.0); MEAN CORPUSCULAR HGB CONC 31.9 g/L CALC (32.0-36.0); NEUT# 12.97 thou/uL (2.00-7.15); RED BLOOD COUNT 4.63 mill/uL (4.20-5.60); RED CELL DISTRI WIDTH 12.7 % (11.5-15.5)
[2019-05-14 11:35] LABS: ACT PARTIAL THROMBO TIME 25.5 SECONDS (20.0-32.5)
[2019-05-14 11:38] LABS: ALKALINE PHOSPHATASE 95 u/l (38-126); BILIRUBIN, TOTAL 0.4 mg/dL (0.0-1.4); BUN 23 mg/dL (8-23); BUN/CREATININE RATIO 27 (12-20 (CALC)); CARBON DIOXIDE 26 mmol/l (22-30); CHLORIDE 97 mmol/l (95-108); CREATININE 0.8 mg/dL (0.5-1.0); GFR > 60 ML/MIN (>=60 (CALC)); GFR FOR AFR.AMER. > 60 ML/MIN (>=60 (CALC)); LIPASE 199 u/l (23-300); POTASSIUM 4.7 mmol/l (3.5-5.1); SGOT/AST 19 u/l (9-36); TOTAL PROTEIN 7.3 g/dL (6.3-8.2)
[2019-05-14 11:46] LABS: ANION GAP 13 (6-22 (CALC)); SODIUM 131 mmol/l (137-146)
[2019-05-14 11:47] LABS: ALBUMIN 3.7 g/dL (3.2-5.0)
[2019-05-14 14:25] VITALS: BP 128/62
[2019-05-14 15:48] VITALS: BP 107/52
[2019-05-14 18:44] VITALS: BP 113/63
[2019-05-14 21:20] LABS: URINE BILIRUBIN - DIPSTICK NEGATIVE (NEGATIVE); URINE BLOOD DIPSTICK NEGATIVE (NEGATIVE); URINE COLOR YELLOW; URINE GLUCOSE - DIPSTICK >=1000 mg/dL (NEGATIVE); URINE KETONE NEGATIVE (NEGATIVE); URINE LEUK ESTERASE NEGATIVE (NEGATIVE); URINE NITRITE - DIPSTICK NEGATIVE (Negative); URINE PROTEIN - DIPSTICK NEGATIVE (NEG-TRACE); URINE UROBILINOGEN - DIPSTICK 0.2 E.U./dL (0.2)
[2019-05-14 23:05] VITALS: BP 116/67
[2019-05-15 04:07] VITALS: BP 130/57
[2019-05-15 07:48] VITALS: BP 133/64
[2019-05-15 11:00] VITALS: BP 126/54
[2019-05-15 15:19] VITALS: BP 115/51
== END 2019-05-15 16:54 | disposition home or self-care (01) ==
LOC: ED 10:30 → ED-I 13:04 → ED 13:22 → MS2 13:23
PROVIDERS: Nurse Practitioner Family; ADMIT Internal Medicine; ATTEND Internal Medicine
DX: R07.9 Chest pain, unspecified (principal); I10 Essential (primary) hypertension; E11.65 Type 2 diabetes mellitus with hyperglycemia; I47.1 Supraventricular tachycardia; J45.909 Unspecified asthma, uncomplicated; E78.5 Hyperlipidemia, unspecified; E03.9 Hypothyroidism, unspecified; K21.9 Gastro-esophageal reflux disease without esophagitis; Z86.73 Personal history of transient ischemic attack (TIA), and cerebral infarction without residual deficits; Z79.84 Long term (current) use of oral hypoglycemic drugs
CPT/HCPCS: G0378

== ENCOUNTER 2019-07-14 | Emergency (ER) | payer MEDICARE, BC | END 2019-07-14 11:08 | disposition home or self-care (01) | DX: M25.551 Pain in right hip (principal); E11.9 Type 2 diabetes mellitus without complications; I10 Essential (primary) hypertension; W19.XXXA Unspecified fall, initial encounter; Z86.73 Personal history of transient ischemic attack (TIA), and cerebral infarction without residual deficits; Z79.84 Long term (current) use of oral hypoglycemic drugs ==

== ENCOUNTER 2019-12-19 13:20 | Emergency (ER) | payer MEDICARE, BC ==
[~2019-12-19] VITALS: Ht 149.9 cm; Wt 40.9 kg
[2019-12-19 14:06] LABS: HEMATOCRIT 39.8 % (37.0-47.0); HEMOGLOBIN 12.5 g/dl (12.0-16.0); IMMATURE GRANULOCYTES 0.3 % (0.0-5.0); MEAN CELL VOLUME 87.7 fL CALC (80.0-100.0); MEAN CORPUSCULAR HGB 27.5 pG CALC (26.0-32.0); MEAN CORPUSCULAR HGB CONC 31.4 g/dL CAL (32.0-36.0); NEUT# 6.18 thou/uL (2.00-7.15); RED BLOOD COUNT 4.54 mill/uL (4.20-5.60); RED CELL DISTRI WIDTH 12.7 % (11.5-15.5)
[2019-12-19 14:11] LABS: URINE BILIRUBIN - DIPSTICK NEGATIVE (NEGATIVE); URINE BLOOD DIPSTICK NEGATIVE (NEGATIVE); URINE COLOR YELLOW; URINE GLUCOSE - DIPSTICK 250 mg/dL (NEGATIVE); URINE KETONE NEGATIVE (NEGATIVE); URINE LEUK ESTERASE NEGATIVE (NEGATIVE); URINE NITRITE - DIPSTICK NEGATIVE (Negative); URINE PH 5.5 (4.5-8.0); URINE PROTEIN - DIPSTICK NEGATIVE (NEG-TRACE); URINE SPECIFIC GRAVITY >=1.030; URINE UROBILINOGEN - DIPSTICK 0.2 E.U./dL (0.2)
[2019-12-19 14:32] LABS: ALBUMIN 4.1 g/dL (3.2-5.0); ALKALINE PHOSPHATASE 92 u/l (38-126); AMYLASE 79 u/l (30-110); ANION GAP 12 (6-22 (CALC)); BILIRUBIN, TOTAL 0.5 mg/dL (0.0-1.4); BUN 24 mg/dL (8-23); BUN/CREATININE RATIO 38 (12-20 (CALC)); CARBON DIOXIDE 28 mmol/l (22-30); CHLORIDE 100 mmol/l (95-108); CREATININE 0.6 mg/dL (0.5-1.0); GFR > 60 ML/MIN (>=60 (CALC)); GFR FOR AFR.AMER. > 60 ML/MIN (>=60 (CALC)); LIPASE 174 u/l (23-300); POTASSIUM 4.8 mmol/l (3.5-5.1); SGOT/AST 26 u/l (9-36); SODIUM 136 mmol/l (137-146); TOTAL PROTEIN 7.4 g/dL (6.3-8.2)
[2019-12-19 17:20] VITALS: BP 135/94
== END 2019-12-19 17:20 | disposition home or self-care (01) ==
LOC: ED 13:20
DX: K59.00 Constipation, unspecified (principal); E11.9 Type 2 diabetes mellitus without complications; I10 Essential (primary) hypertension; Z86.73 Personal history of transient ischemic attack (TIA), and cerebral infarction without residual deficits; Z79.84 Long term (current) use of oral hypoglycemic drugs
CPT/HCPCS: Q9967

== ENCOUNTER 2020-03-06 05:44 | Inpatient (IN) | payer MEDICARE, BC ==
[~2020-03-06] VITALS: Ht 149.9 cm; Wt 41.0 kg
[2020-03-06] VITALS (10 sets, daily range): BP systolic 99–147; BP diastolic 48–77
--- NOTE | 2020-03-06 05:45 | NUR ---
TO ROOM FOR TRIAGE.
[2020-03-06 06:29] LABS: HEMATOCRIT 39.9 % (37.0-47.0); HEMOGLOBIN 12.6 g/dl (12.0-16.0); IMMATURE GRANULOCYTES 0.2 % (0.0-5.0); MEAN CELL VOLUME 89.3 fL CALC (80.0-100.0); MEAN CORPUSCULAR HGB 28.2 pG CALC (26.0-32.0); MEAN CORPUSCULAR HGB CONC 31.6 g/dL CAL (32.0-36.0); NEUT# 7.99 thou/uL (2.00-7.15); RED BLOOD COUNT 4.47 mill/uL (4.20-5.60); RED CELL DISTRI WIDTH 13.1 % (11.5-15.5)
[2020-03-06 06:41] LABS: D-DIMER 0.4 mg/L (0.19-0.60)
[2020-03-06 06:43] LABS: ALBUMIN 4.4 g/dL (3.2-5.0); ALKALINE PHOSPHATASE 88 u/l (38-126); AMYLASE 82 u/l (30-110); ANION GAP 14 (6-22 (CALC)); BILIRUBIN, TOTAL 0.4 mg/dL (0.0-1.4); BUN 24 mg/dL (8-23); BUN/CREATININE RATIO 30 (12-20 (CALC)); CARBON DIOXIDE 26 mmol/l (22-30); CHLORIDE 100 mmol/l (95-108); CREATININE 0.8 mg/dL (0.5-1.0); GFR > 60 ML/MIN (>=60 (CALC)); GFR FOR AFR.AMER. > 60 ML/MIN (>=60 (CALC)); LIPASE 170 u/l (23-300); POTASSIUM 4.9 mmol/l (3.5-5.1); SGOT/AST 26 u/l (9-36); SODIUM 136 mmol/l (137-146); TOTAL PROTEIN 7.8 g/dL (6.3-8.2)
--- NOTE | 2020-03-06 06:47 | NUR ---
RESTING QUIETLY AWAITING TEST RESULTS
--- NOTE | 2020-03-06 07:00 | NUR ---
REPORT RECEIVED FROM BILL VIZCAINO.
[2020-03-06 07:01] LABS: ACT PARTIAL THROMBO TIME 23.8 SECONDS (20.0-32.5)
[2020-03-06 07:15] LABS: TSH, 3RD GENERATION 3.38 uIU/mL (0.47 - 4.68)
--- NOTE | 2020-03-06 07:20 | NUR ---
PT IN SVT, DR BANKS AWARE. STAT EKG COMPLETED. CRASH CART AT BEDSIDE. PADS PLACED ON PT. WILL CONTINUE TO MONITOR.
--- NOTE | 2020-03-06 07:30 | NUR ---
2ND EKG COMPLETED, PT RETURNED TO SINUS RHYTHM. VITALS STABLE ON MONITOR.
--- NOTE | 2020-03-06 08:45 | NUR ---
REPORT CALLED TO BILL RAYGOZA ICU.
--- NOTE | 2020-03-06 09:05 | NUR ---
PT ARRIVED TO ICU BED 1 VIA STRETCHER ACCOMPANIED BY ER NURSE AND SON. PT IS ALERT AND ORIENTED X3. EXPLAINED TO SON THAT SHE WOULD NOT BE ALLOWED VISITORS UNTIL COVID SWAB CAME BACK AND PT IS IGG POSITIVE. SON REQUESTED TO GET APPROVAL FOR HIM TO VISIT. PLASTIC PANEL INSTALLER NOTIFIED. ASKED HIM TO WAIT IN WAITING ROOM FOR APPROVAL. IV PATENT X2. ORIENTED PT TO ROOM AND CALL LIGHT SYSTEM. PT MOSTLY UPPER SORBIAN SPEAKING BUT SAYS SHE DOES UNDERSTAND AMERICAN. CALL LIGHT IN REACH. WILL CONTINUE TO MONITOR.
--- NOTE | 2020-03-06 09:55 | NUR ---
SON GIVEN PTS PURSE AND HOME MEDS AND LEFT WAITING ROOM
--- NOTE | 2020-03-06 10:10 | NUR ---
COVID SWAB OBTAINED AND SENT TO LAB
--- NOTE | 2020-03-06 11:42 | NUR ---
SON CALLED AND STATED THAT PT HAD CALLED HIM REQUESTING TO GO TO THE BATHROOM. EXPLAINED THAT PT HAD NOT ASKED TO GO TO BATHROOM. SON ALSO STATES THAT PATIENT WILL NOT EAT HOSPITAL FOOD.
--- NOTE | 2020-03-06 11:50 | NUR ---
PT ASSISTED UP TO BSC TO VOID THEN ASSISTED BACK TO BED. PT REFUSING TO EAT LUNCH AT THIS TIME.
--- NOTE | 2020-03-06 13:30 | NUR ---
Becki BOBO AT BEDSIDE AT [facility] TIME
--- NOTE | 2020-03-06 13:36 | NUR ---
FOOD WAS BROUGHT IN BY FAMILY MEMBER, FOOD GIVEN TO PT.
--- NOTE | 2020-03-06 13:55 | NUR ---
NOTIFED KAYLEEN BOBO OF CONSULT.
--- NOTE | 2020-03-06 14:13 | NUR ---
PT RESTING IN BED WATCHING TV. RESP ARE EVEN AND UNLABORED. NO DISTRESSS NOTED. CALL LIGHT IN REACH. WILL CONTINUE TOMONITOR
--- NOTE | 2020-03-06 16:00 | NUR ---
pt resting in bed watching tv. resp are even and uanlbored. vss on monitor. call light in reach. will continue to montior.
--- NOTE | 2020-03-06 16:45 | NUR ---
KAYLEEN BOBO INTO SEE PATIENT. INTERPRETATION LINE USED. CALLED SON AND UPDATED ON PLAN OF CARE AMD THAT PATIENT WOULD NEED TO FOLLOW UP WITH CADIOLOGY OUTPATIENT.
--- NOTE | 2020-03-06 18:05 | NUR ---
PT ASSISTED UP TO BSC TO VOID THEN ASSISTED BACK TO BED. PT TOLERATED WELL. LAB NOW AT BEDSIDE FOR REPEAT TROPONIN. CALL LIGHT IN REACH. WILL CONTINUE TOMONITOR.
--- NOTE | 2020-03-06 18:50 | NUR ---
lab results rec'd per addison.
--- NOTE | 2020-03-06 19:00 | NUR ---
choco kirby notified of lab results. no new orders.
--- NOTE | 2020-03-06 20:30 | NUR ---
awake. denies distress. assisted to bsc then back to bed. telemetry monitor shows sinus rhythm. #22 lt wrist ns infusing @ 100cchr. #20 rac saline lock. po fluids taken well. fall & air/contact precautions cont.
--- NOTE | 2020-03-06 22:00 | NUR ---
eyes closed. no distress. clay grinder shows sinus rhythm 1st degree avb hr 66.
[2020-03-07] VITALS (14 sets, daily range): BP systolic 90–139; BP diastolic 44–70
--- NOTE | 2020-03-07 00:15 | NUR ---
lab here. blood drawn.
--- NOTE | 2020-03-07 02:00 | NUR ---
resting quietly. resps even & unlabored. bus driver/monitor shows sinus elijah 1st degree avb hr 56.
--- NOTE | 2020-03-07 04:00 | NUR ---
eyes closed. no distress. cardiac cath lab radiology technologist shows sinus elijah 1st degree avb hr 58.
--- NOTE | 2020-03-07 04:55 | NUR ---
lab here. blood drawn.
[2020-03-07 06:00] LABS: CHOLESTEROL HDL RATIO 3.5 (<4.4 (CALC))
--- NOTE | 2020-03-07 06:00 | NUR ---
cardiac cath rn shows ainus rhythm 1st degree avb hr 60
[2020-03-07 06:02] LABS: MAGNESIUM 2.3 mg/dL (1.6-2.3)
--- NOTE | 2020-03-07 08:00 | NUR ---
PT IS AWAKE, ALERT, ORIENTED X 3. LUNGS CLEAR, RA. ABDOMEN SOFT, NON-TENDER, LAST BM THURSDAY. PT AMBULATORY AT HOME, USES BSC. NO COMPLAINTS, NO DISTRESS, NO IRREGULAR HR.
--- NOTE | 2020-03-07 10:07 | NUR ---
PT SEEN BY DR MCDANIEL THIS MORNING, CONTINUES IN NORMAL RHYTHM WITHOUT COMPLAINT OR EVIDENCE OF DISTRESS.
--- NOTE | 2020-03-07 10:14 | NUR ---
PT AWARE THAT COVID-19 SWAB RETURNED NEGATIVE.
--- NOTE | 2020-03-07 16:09 | NUR ---
PT USES BSC NEEDED, TRANSFERS HERSELF WITH STEADY MOVEMENT. NO DISTRESS, NO ELEVATED HR, NO SOB.
--- NOTE | 2020-03-07 18:13 | NUR ---
PT ENJOYS VISIT FROM FAMILY MEMBER. NO CHANGE IN STATUS. PT WANTS TO GO HOME.
--- NOTE | 2020-03-07 19:10 | NUR ---
PATIENT IS AWAKE, ALERT AND ORIENTED X4. IS ON RA, NO SOB NOTED. PT DOES REPORT SHE HAS ASTHMA, AND "ASTHMA ATTACKS" AT TIMES. PATIENT SATS 95%. NURSE ASSESSMENT PERFORMED. BP WNL. SR ON TELEMETRY. AFEBRILE. POC DISCUSSED, PATIENT UNDERSTANDS AND AGREES. IV X2 INTACT, FLUSH PROPERLY, SALINE LOCKED. PT UP TO BEDSIDE COMMODE WITH NO DIFFICULTY. LAYS BACK IN BED. KSELF REPOSITIONS. NO COMPLAINTS OF PAIN. REQUESTS LOTION, PROVIDED. CALL LIGHT WITHIN REACH.
--- NOTE | 2020-03-07 20:54 | NUR ---
BLOOD SUGAR CHECKED, WILL NEED INSULIN GLENN, PT REPORTS SHE DOES NOT WANT TO BE ON INSULIN, PT WAS EDUCATED ABOUT HER HEMOGLOBIN A1C LAB RESULT WELL TONIGHT'S RESULT, EDUCATED ON PENITENTIARY UNCONTROLLED BLOOD SUGARS AND HOW IT AFFECTS HER BODY. PATIENT UNDERSTANDS AND AGREES. PATIENT REPORTS SHE HAS NOT TAKEN CARE OF HERSELF SINCE HER ABOUT 6 MO AGO. PT UP TO BEDSIDE COMMODE.
--- NOTE | 2020-03-07 21:14 | NUR ---
PATIENT ABLE TO SWALLOW BEDTIME MEDS, ABLE TO TOLERATE INSULIN AND LOVENOX, ABLE TO USE INHALER PROPERLY. REQEUSTS CRACKERS FOR SNACK TONIGHT. CALL LIGHT WITHIN REACH.
[2020-03-08] VITALS (12 sets, daily range): BP systolic 111–147; BP diastolic 53–77
[2020-03-08 04:58] LABS: ANION GAP 10 (6-22 (CALC)); BUN 10 mg/dL (8-23); BUN/CREATININE RATIO 17 (12-20 (CALC)); CARBON DIOXIDE 28 mmol/l (22-30); CHLORIDE 108 mmol/l (95-108); CREATININE 0.6 mg/dL (0.5-1.0); GFR > 60 ML/MIN (>=60 (CALC)); GFR FOR AFR.AMER. > 60 ML/MIN (>=60 (CALC)); SODIUM 141 mmol/l (137-146)
[2020-03-08 05:00] LABS: POTASSIUM 5.3 mmol/l (3.5-5.1)
--- NOTE | 2020-03-08 06:14 | NUR ---
PATIENT IS AWAKE, ABLE TO SWALLOW AM MEDIACTION. PREFERS BOTTLED WATER, PROVIDED. NO COMPLAINTS OF PAIN. CALL LIGHT WITHIN REACH.
--- NOTE | 2020-03-08 06:45 | NUR ---
REPORT RECEIVED FROM HINA KHAN. CARE ASSUMED.
--- NOTE | 2020-03-08 07:40 | NUR ---
PT IS RESTING IN BED AWAKE. PT IS ALERT AND ORIENTED X3. SHIFT ASSESSMENT COMPLETED AT THIS TIME. IV PATENT X2. CALL LIGHT IN REACH. WILL CONTINUE TO MONITOR.
--- NOTE | 2020-03-08 08:13 | NUR ---
DR MCDANIEL AND [employer] LIAISON AT BEDSIDE AT THIS TIME.
--- NOTE | 2020-03-08 09:51 | NUR ---
PT SITTING UP IN CHAIR AT BEDSIDE. RESP ARE EVEN AND UNLABORED. NO DISTRESS NOTED. CALL LIGHT IN REACH. WILL CONTINUE TO MONITOR.
--- NOTE | 2020-03-08 12:00 | NUR ---
PT RESTING IN BED AWAKE AND CONVERSING ON PHONE. RESP ARE EVEN AND UNLABORED. NO DISTRESS NOTED. CALL LIGHT IN REACH. WILL CONTINUE TO MONITOR.
--- NOTE | 2020-03-08 14:00 | NUR ---
PT RESTING IN BED WATHICNG TV. RESP ARE EVEN AND UNLABORED. NO DISTRESS NOTED. CALL LIGHT IN REACH. WILL CONTINUE TO MONITOR.
--- NOTE | 2020-03-08 15:53 | NUR ---
PT RESTING IN BED CONVERSING ON PHONE. RESP ARE EVEN AND UNLABORED. NO DISTRESS NOTED. CALL LIGHT IN REACH. WILL CONTINUE TO MONITOR.
[2020-03-08] MEDS ORDERED: CARDIZEM CD120 MG PO (17:48)
[2020-03-08] MEDS ORDERED: LEVEMIR100 UNIT/M SC (17:48)
--- NOTE | 2020-03-08 18:10 | NUR ---
DISCHARGE INSTRUCTIONS REVIEWED WITH PATIENT AND SON. IV REMOVED X2. CATH TIP INTACT. PT TOLERAED WELL.
--- NOTE | 2020-03-08 18:18 | NUR ---
Discharge instructions given. Patient verbalizes understanding of same. Discharged in stable condition via Wheelchair to Home with family. All belongings sent with pt.
== END 2020-03-08 18:18 | disposition home or self-care (01) | DRG 310 ==
LOC: ED 05:44 → ED-I 07:20 → ED 07:37 → ICU 07:38 → ED 07:38 → ICU 03-08 18:18
PROVIDERS: Internal Medicine; ADMIT Internal Medicine; ATTEND Internal Medicine
DX: I47.1 Supraventricular tachycardia (principal); R76.8 Other specified abnormal immunological findings in serum; E11.65 Type 2 diabetes mellitus with hyperglycemia; I10 Essential (primary) hypertension; E78.5 Hyperlipidemia, unspecified; E03.9 Hypothyroidism, unspecified; K21.9 Gastro-esophageal reflux disease without esophagitis; J44.9 Chronic obstructive pulmonary disease, unspecified; R79.89 Other specified abnormal findings of blood chemistry; F41.9 Anxiety disorder, unspecified; Z86.73 Personal history of transient ischemic attack (TIA), and cerebral infarction without residual deficits; Z79.84 Long term (current) use of oral hypoglycemic drugs; Z20.828 Contact with and (suspected) exposure to other viral communicable diseases
CPT/HCPCS: J1650; J3475

== ENCOUNTER 2020-03-28 23:24 | Emergency (ER) | payer MEDICARE, BC ==
[~2020-03-28] VITALS: Ht 149.9 cm; Wt 40.9 kg
[~2020-03-28 23:24] MED LIST changes: +CARDIZEM CD120 MG PO; +LEVEMIR100 UNIT/M SC
[2020-03-29] LABS: HEMATOCRIT 39.1 % (37.0-47.0); HEMOGLOBIN 12.4 g/dl (12.0-16.0); IMMATURE GRANULOCYTES 0.2 % (0.0-5.0); MEAN CELL VOLUME 89.5 fL CALC (80.0-100.0); MEAN CORPUSCULAR HGB 28.4 pG CALC (26.0-32.0); MEAN CORPUSCULAR HGB CONC 31.7 g/dL CAL (32.0-36.0); NEUT# 7.93 thou/uL (2.00-7.15); RED BLOOD COUNT 4.37 mill/uL (4.20-5.60); RED CELL DISTRI WIDTH 12.6 % (11.5-15.5)
[2020-03-29 00:07] LABS: URINE BILIRUBIN - DIPSTICK NEGATIVE (NEGATIVE); URINE BLOOD DIPSTICK TRACE-INTACT (NEGATIVE); URINE COLOR YELLOW; URINE GLUCOSE - DIPSTICK >=1000 mg/dL (NEGATIVE); URINE KETONE NEGATIVE (NEGATIVE); URINE LEUK ESTERASE NEGATIVE (NEGATIVE); URINE NITRITE - DIPSTICK NEGATIVE (Negative); URINE PROTEIN - DIPSTICK NEGATIVE (NEG-TRACE); URINE UROBILINOGEN - DIPSTICK 0.2 E.U./dL (0.2)
[2020-03-29 00:17] LABS: ALBUMIN 4.4 g/dL (3.2-5.0); ALKALINE PHOSPHATASE 110 u/l (38-126); BILIRUBIN, TOTAL 0.5 mg/dL (0.0-1.4); BUN 27 mg/dL (8-23); BUN/CREATININE RATIO 30 (12-20 (CALC)); CHLORIDE 99 mmol/l (95-108); CREATININE 0.9 mg/dL (0.5-1.0); GFR > 60 ML/MIN (>=60 (CALC)); GFR FOR AFR.AMER. > 60 ML/MIN (>=60 (CALC)); SGOT/AST 29 u/l (9-36); TOTAL PROTEIN 8.5 g/dL (6.3-8.2)
[2020-03-29 00:29] LABS: MYOGLOBIN 23 ng/mL (0 - 62); SODIUM 132 mmol/l (137-146)
[2020-03-29 00:34] LABS: ANION GAP 18 (6-22 (CALC)); CARBON DIOXIDE 21 mmol/l (22-30); POTASSIUM 5.8 mmol/l (3.5-5.1)
[2020-03-29 03:02] VITALS: BP 165/77
== END 2020-03-29 03:37 | disposition home or self-care (01) ==
LOC: ED 23:24 → ED-I 03-29 03:25 → ED 03-29 03:37
PROVIDERS: Emergency Medicine
DX: E11.65 Type 2 diabetes mellitus with hyperglycemia (principal); E87.2 Acidosis; I10 Essential (primary) hypertension; Z79.4 Long term (current) use of insulin; Z86.73 Personal history of transient ischemic attack (TIA), and cerebral infarction without residual deficits
CPT/HCPCS: A9502; J0706; J2785

== ENCOUNTER 2020-07-30 09:26 | Emergency (ER) | payer MEDICARE, BC ==
[~2020-07-30] VITALS: Ht 149.9 cm; Wt 55.0 kg
[2020-07-30 10:54] LABS: URINE BILIRUBIN - DIPSTICK NEGATIVE (NEGATIVE); URINE BLOOD DIPSTICK NEGATIVE (NEGATIVE); URINE COLOR YELLOW; URINE GLUCOSE - DIPSTICK 500 mg/dL (NEGATIVE); URINE KETONE NEGATIVE (NEGATIVE); URINE LEUK ESTERASE NEGATIVE (NEGATIVE); URINE NITRITE - DIPSTICK NEGATIVE (Negative); URINE PROTEIN - DIPSTICK NEGATIVE (NEG-TRACE); URINE UROBILINOGEN - DIPSTICK 0.2 E.U./dL (0.2)
[2020-07-30 10:59] LABS: HEMATOCRIT 39.6 % (37.0-47.0); HEMOGLOBIN 11.8 g/dl (12.0-16.0); IMMATURE GRANULOCYTES 0.4 % (0.0-5.0); MEAN CELL VOLUME 89.8 fL CALC (80.0-100.0); MEAN CORPUSCULAR HGB 26.8 pG CALC (26.0-32.0); MEAN CORPUSCULAR HGB CONC 29.8 g/dL CAL (32.0-36.0); NEUT# 10.28 thou/uL (2.00-7.15); RED BLOOD COUNT 4.41 mill/uL (4.20-5.60); RED CELL DISTRI WIDTH 14.2 % (11.5-15.5)
[2020-07-30] MEDS ORDERED: ADVAIR DISK2 IN (11:19)
[2020-07-30 11:26] LABS: ALBUMIN 4.5 g/dL (3.2-5.0); ALKALINE PHOSPHATASE 119 u/l (38-126); BILIRUBIN, TOTAL 0.6 mg/dL (0.0-1.4); BUN 18 mg/dL (8-23); BUN/CREATININE RATIO 21 (12-20 (CALC)); CHLORIDE 100 mmol/l (95-108); CREATININE 0.9 mg/dL (0.5-1.0); GFR > 60 ML/MIN (>=60 (CALC)); GFR FOR AFR.AMER. > 60 ML/MIN (>=60 (CALC)); LIPASE 162 u/l (23-300); POTASSIUM 4.9 mmol/l (3.5-5.1); SGOT/AST 34 u/l (9-36); SODIUM 138 mmol/l (137-146); TOTAL PROTEIN 8.7 g/dL (6.3-8.2)
[2020-07-30] MEDS ORDERED: VENTOLIN HFA IN (11:26)
[2020-07-30] MEDS ORDERED: LIPITOR20 MG PO (11:27)
[2020-07-30] MEDS ORDERED: METOPROL TAR25 MG PO (11:27)
[2020-07-30] MEDS ORDERED: CITALOPRAM40 M1 PO (11:28)
[2020-07-30] MEDS ORDERED: LEVOTHYROXIN50 MC1 PO (11:31)
[2020-07-30] MEDS ORDERED: VALSARTAN40 MG PO (11:31)
[2020-07-30 11:37] LABS: ANION GAP 12 (6-22 (CALC)); CARBON DIOXIDE 31 mmol/l (22-30)
[2020-07-30] MEDS ORDERED: ASPIRIN 81 LOW81 MG PO (11:40)
[2020-07-30] MEDS ORDERED: SINGULAIR10 MG PO (11:44)
[2020-07-30] MEDS ORDERED: KLONOPIN0.5 M1 PO (11:48)
[2020-07-30] MEDS ORDERED: NEURONTIN100 MG PO (11:49)
[2020-07-30] MEDS ORDERED: MIRTAZAPINE15 MG PO (11:50)
[2020-07-30] MEDS ORDERED: METRONIDAZOL500 MG PO (12:47)
[2020-07-30] MEDS ORDERED: ZOFRAN4 M1 PO (12:47)
[2020-07-30] MEDS ORDERED: CIPROFLOXACN500 MG PO (12:47)
[2020-07-30 13:18] VITALS: BP 126/75
== END 2020-07-30 13:18 | disposition home or self-care (01) ==
LOC: ED 09:26
PROVIDERS: Family Medicine
DX: K57.32 Diverticulitis of large intestine without perforation or abscess without bleeding (principal); E11.9 Type 2 diabetes mellitus without complications; I10 Essential (primary) hypertension; J45.909 Unspecified asthma, uncomplicated; E89.0 Postprocedural hypothyroidism; Z86.73 Personal history of transient ischemic attack (TIA), and cerebral infarction without residual deficits
CPT/HCPCS: Q9967

== ENCOUNTER 2021-02-02 08:53 | Emergency (ER) | payer MEDICARE, BC ==
[~2021-02-02] VITALS: Ht 149.9 cm; Wt 40.9 kg
[~2021-02-02 08:53] MED LIST changes: +ADVAIR DISK2 IN; +ASPIRIN 81 LOW81 MG PO; +CITALOPRAM40 M1 PO; +KLONOPIN0.5 M1 PO; +LEVOTHYROXIN50 MC1 PO; +LIPITOR20 MG PO; +METRONIDAZOL500 MG PO; +MIRTAZAPINE15 MG PO; +NEURONTIN100 MG PO; +VALSARTAN40 MG PO; +VENTOLIN HFA IN; +ZOFRAN4 M1 PO
[2021-02-02] MEDS ORDERED: ULTRAM50 MG PO (10:26)
[2021-02-02 10:30] VITALS: BP 179/82
== END 2021-02-02 11:03 | disposition home or self-care (01) ==
LOC: ED 08:53
DX: R51.9 Headache, unspecified (principal); I10 Essential (primary) hypertension; E11.9 Type 2 diabetes mellitus without complications; J45.909 Unspecified asthma, uncomplicated; E89.0 Postprocedural hypothyroidism; Z86.73 Personal history of transient ischemic attack (TIA), and cerebral infarction without residual deficits; Z20.822 Contact with and (suspected) exposure to COVID-19

== ENCOUNTER 2021-07-18 13:00 | Emergency (ER) | payer MEDICARE, BC ==
[~2021-07-18] VITALS: Ht 149.9 cm; Wt 40.4 kg
[~2021-07-18 13:00] MED LIST changes: +ULTRAM50 MG PO
[2021-07-18 13:40] VITALS: BP 143/63
[2021-07-18 14:00] VITALS: BP 153/58
[2021-07-18 15:00] VITALS: BP 161/66
[2021-07-18] MEDS ORDERED: METFORMIN HCL500 M1 PO (15:18)
[2021-07-18] MEDS ORDERED: AMOX/K CLAV875 M1 PO (15:24)
[2021-07-18 15:40] VITALS: BP 161/66
== END 2021-07-18 15:40 | disposition home or self-care (01) ==
LOC: ED 13:00
DX: R59.0 Localized enlarged lymph nodes (principal); I10 Essential (primary) hypertension; E11.9 Type 2 diabetes mellitus without complications; J45.909 Unspecified asthma, uncomplicated; Z86.73 Personal history of transient ischemic attack (TIA), and cerebral infarction without residual deficits; Z79.84 Long term (current) use of oral hypoglycemic drugs; Z20.822 Contact with and (suspected) exposure to COVID-19

== ENCOUNTER 2021-11-25 11:50 | Emergency (ER) | payer MEDICARE, BC ==
[~2021-11-25] VITALS: Ht 149.9 cm; Wt 42.0 kg
[2021-11-25] VITALS (18 sets, daily range): BP systolic 126–176; BP diastolic 67–124
[~2021-11-25 11:50] MED LIST changes: +AMOX/K CLAV875 M1 PO; +METFORMIN HCL500 M1 PO
[2021-11-25 12:14] LABS: HEMOGLOBIN 12.6 g/dl (12.0-16.0); IMMATURE GRANULOCYTES 0.1 % (0.0-5.0); MEAN CELL VOLUME 90.7 fL CALC (80.0-100.0); MEAN CORPUSCULAR HGB 27.9 pG CALC (26.0-32.0); MEAN CORPUSCULAR HGB CONC 30.7 g/dL CAL (32.0-36.0); NEUT# 4.05 thou/uL (2.00-7.15); RED BLOOD COUNT 4.52 mill/uL (4.20-5.60)
[2021-11-25 12:47] LABS: ALBUMIN 4.5 g/dL (3.2-5.0); ALKALINE PHOSPHATASE 82 u/l (38-126); BUN 17 mg/dL (8-23); BUN/CREATININE RATIO 18 (12-20 (CALC)); CARBON DIOXIDE 30 mmol/l (22-30); CHLORIDE 103 mmol/l (95-108); GFR FOR AFR.AMER. > 60 ML/MIN (>=60 (CALC)); GFR OTHER RACES 53 ML/MIN (>=60 (CALC)); LIPASE 118 u/l (23-300); SGOT/AST 28 u/l (9-36); SODIUM 142 mmol/l (137-146); TOTAL PROTEIN 8.2 g/dL (6.3-8.2)
[2021-11-25 12:48] LABS: ANION GAP 14 (6-22 (CALC)); BILIRUBIN, TOTAL 0.2 mg/dL (0.0-1.4); POTASSIUM 5.3 mmol/l (3.5-5.1)
[2021-11-25] MEDS ORDERED: MEDDOSEPAK PO (15:47)
[2021-11-25] MEDS ORDERED: VENTOLIN HFA IN (15:47)
[2021-11-25] MEDS ORDERED: ALBUTEROL SUL0.083 % IN (15:47)
[2021-11-25] MEDS ORDERED: ZPAK PO (15:47)
== END 2021-11-25 15:55 | disposition home or self-care (01) ==
LOC: ED 11:50
DX: J45.901 Unspecified asthma with (acute) exacerbation (principal); I10 Essential (primary) hypertension; E11.9 Type 2 diabetes mellitus without complications; Z86.73 Personal history of transient ischemic attack (TIA), and cerebral infarction without residual deficits; Z79.84 Long term (current) use of oral hypoglycemic drugs; Z20.822 Contact with and (suspected) exposure to COVID-19

== ENCOUNTER 2021-11-27 14:44 | Emergency (ER) | payer MEDICARE, BC ==
[~2021-11-27] VITALS: Ht 149.9 cm; Wt 72.7 kg
[2021-11-27] VITALS (13 sets, daily range): BP systolic 156–193; BP diastolic 67–87
[~2021-11-27 14:44] MED LIST changes: +ALBUTEROL SUL0.083 % IN; +ZPAK PO
[2021-11-27 15:28] LABS: HEMOGLOBIN 10.8 g/dl (12.0-16.0); IMMATURE GRANULOCYTES 0.6 % (0.0-5.0); MEAN CELL VOLUME 90.4 fL CALC (80.0-100.0); MEAN CORPUSCULAR HGB 28.1 pG CALC (26.0-32.0); NEUT# 10.8 thou/uL (2.00-7.15); RED BLOOD COUNT 3.85 mill/uL (4.20-5.60); RED CELL DISTRI WIDTH 14.2 % (11.5-15.5)
[2021-11-27 15:33] LABS: HEMATOCRIT 34.8 % (37.0-47.0)
[2021-11-27 15:54] LABS: ALBUMIN 4.1 g/dL (3.2-5.0); ALKALINE PHOSPHATASE 72 u/l (38-126); ANION GAP 13 (6-22 (CALC)); BUN 31 mg/dL (8-23); BUN/CREATININE RATIO 31 (12-20 (CALC)); CARBON DIOXIDE 26 mmol/l (22-30); CHLORIDE 103 mmol/l (95-108); GFR FOR AFR.AMER. > 60 ML/MIN (>=60 (CALC)); GFR OTHER RACES 53 ML/MIN (>=60 (CALC)); POTASSIUM 5.1 mmol/l (3.5-5.1); SGOT/AST 27 u/l (9-36); SODIUM 136 mmol/l (137-146); TOTAL PROTEIN 7.6 g/dL (6.3-8.2)
[2021-11-27 16:05] LABS: MYOGLOBIN 79 ng/mL (0 - 62)
== END 2021-11-27 18:33 | disposition home or self-care (01) ==
LOC: ED 14:44
PROVIDERS: Emergency Medicine
DX: J44.1 Chronic obstructive pulmonary disease with (acute) exacerbation (principal); I10 Essential (primary) hypertension; E11.9 Type 2 diabetes mellitus without complications; Z86.73 Personal history of transient ischemic attack (TIA), and cerebral infarction without residual deficits; Z20.822 Contact with and (suspected) exposure to COVID-19

== ENCOUNTER 2021-12-24 10:27 | Emergency (ER) | payer MEDICARE, BC ==
[~2021-12-24] VITALS: Ht 149.9 cm; Wt 43.0 kg
[2021-12-24 10:59] LABS: HEMOGLOBIN 11.5 g/dl (12.0-16.0); IMMATURE GRANULOCYTES 0.1 % (0.0-5.0); MEAN CELL VOLUME 91.6 fL CALC (80.0-100.0); MEAN CORPUSCULAR HGB 27.7 pG CALC (26.0-32.0); MEAN CORPUSCULAR HGB CONC 30.3 g/dL CAL (32.0-36.0); NEUT# 4.65 thou/uL (2.00-7.15); RED BLOOD COUNT 4.15 mill/uL (4.20-5.60)
[2021-12-24 11:25] LABS: ALBUMIN 3.9 g/dL (3.2-5.0); ALKALINE PHOSPHATASE 99 u/l (38-126); BUN 19 mg/dL (8-23); BUN/CREATININE RATIO 20 (12-20 (CALC)); CARBON DIOXIDE 30 mmol/l (22-30); CHLORIDE 100 mmol/l (95-108); CREATININE 0.9 mg/dL (0.5-1.0); GFR FOR AFR.AMER. > 60 ML/MIN (>=60 (CALC)); GFR OTHER RACES 60 ML/MIN (>=60 (CALC)); SGOT/AST 28 u/l (9-36); SODIUM 138 mmol/l (137-146); TOTAL PROTEIN 7.3 g/dL (6.3-8.2)
[2021-12-24 11:29] LABS: ANION GAP 14 (6-22 (CALC)); BILIRUBIN, TOTAL 0.2 mg/dL (0.0-1.4); POTASSIUM 5.5 mmol/l (3.5-5.1)
[2021-12-24] MEDS ORDERED: ZPAK PO (13:00)
[2021-12-24] MEDS ORDERED: PREDNISONE50 MG PO (13:00)
== END 2021-12-24 13:17 | disposition home or self-care (01) ==
LOC: ED 10:27
PROVIDERS: Family Medicine
DX: J45.909 Unspecified asthma, uncomplicated (principal); I10 Essential (primary) hypertension; E11.9 Type 2 diabetes mellitus without complications; Z86.73 Personal history of transient ischemic attack (TIA), and cerebral infarction without residual deficits; Z79.84 Long term (current) use of oral hypoglycemic drugs
CPT/HCPCS: J3475

== ENCOUNTER 2022-01-30 04:37 | Emergency (ER) | payer MEDICARE, BC ==
[~2022-01-30] VITALS: Ht 149.9 cm; Wt 43.8 kg
[~2022-01-30 04:37] MED LIST changes: +PREDNISONE50 MG PO
[2022-01-30 05:02] LABS: HEMATOCRIT 39.5 % (37.0-47.0); HEMOGLOBIN 12.4 g/dl (12.0-16.0); IMMATURE GRANULOCYTES 0.3 % (0.0-5.0); MEAN CELL VOLUME 89.2 fL CALC (80.0-100.0); MEAN CORPUSCULAR HGB CONC 31.4 g/dL CAL (32.0-36.0); NEUT# 3.48 thou/uL (2.00-7.15); RED BLOOD COUNT 4.43 mill/uL (4.20-5.60); RED CELL DISTRI WIDTH 13.7 % (11.5-15.5)
[2022-01-30 05:13] LABS: ALBUMIN 4.2 g/dL (3.2-5.0); ALKALINE PHOSPHATASE 90 u/l (38-126); ANION GAP 14 (6-22 (CALC)); BUN 21 mg/dL (8-23); BUN/CREATININE RATIO 19 (12-20 (CALC)); CARBON DIOXIDE 29 mmol/l (22-30); CHLORIDE 101 mmol/l (95-108); CREATININE 1.1 mg/dL (0.5-1.0); GFR FOR AFR.AMER. 58 ML/MIN (>=60 (CALC)); GFR OTHER RACES 48 ML/MIN (>=60 (CALC)); SGOT/AST 28 u/l (9-36); SODIUM 139 mmol/l (137-146); TOTAL PROTEIN 7.4 g/dL (6.3-8.2)
[2022-01-30 05:22] LABS: BILIRUBIN, TOTAL 0.1 mg/dL (0.0-1.4); MYOGLOBIN 35 ng/mL (0 - 62)
[2022-01-30 05:55] VITALS: BP 152/67
[2022-01-30 06:00] VITALS: BP 141/67
[2022-01-30 06:15] VITALS: BP 137/61
[2022-01-30] MEDS ORDERED: NAPROXEN500 MG PO (06:24)
[2022-01-30] MEDS ORDERED: VENTOLIN HFA IN (06:24)
[2022-01-30 06:26] VITALS: BP 137/61
== END 2022-01-30 06:30 | disposition home or self-care (01) ==
LOC: ED 04:37
PROVIDERS: Emergency Medicine
PROC: 0HQ0XZZ Repair Scalp Skin, External Approach (ICD-10-PCS; principal; 2022-01-30)
DX: S01.01XA Laceration without foreign body of scalp, initial encounter (principal); J45.901 Unspecified asthma with (acute) exacerbation; I10 Essential (primary) hypertension; E11.9 Type 2 diabetes mellitus without complications; Z86.73 Personal history of transient ischemic attack (TIA), and cerebral infarction without residual deficits; Z79.4 Long term (current) use of insulin; W19.XXXA Unspecified fall, initial encounter

== ENCOUNTER 2022-06-13 17:59 | Emergency (ER) | payer MEDICARE, BC ==
[2022-06-13] VITALS (16 sets, daily range): BP systolic 133–202; BP diastolic 52–124
[~2022-06-13] VITALS: Ht 147.3 cm; Wt 40.8 kg
[~2022-06-13 17:59] MED LIST changes: +NAPROXEN500 MG PO
[2022-06-13 18:29] LABS: BASO% 0.4 % (0-3); EOS% 7.6 % (0-8); HEMATOCRIT 36.5 % (37.0-47.0); IMMATURE GRANULOCYTES 0.1 % (0.0-5.0); LYMPH% 7.8 % (15-41); MEAN CELL VOLUME 86.7 fL CALC (80.0-100.0); MEAN CORPUSCULAR HGB 26.1 pG CALC (26.0-32.0); MEAN CORPUSCULAR HGB CONC 30.1 g/dL CAL (32.0-36.0); MONO% 4.4 % (2-13); NEUT# 12.99 thou/uL (2.00-7.15); NEUT% 79.7 % (42-76); RED BLOOD COUNT 4.21 mill/uL (4.20-5.60); RED CELL DISTRI WIDTH 14.4 % (11.5-15.5)
[2022-06-13 18:47] LABS: ALBUMIN 4.6 g/dL (3.2-5.0); ALKALINE PHOSPHATASE 133 u/l (38-126); BUN 13 mg/dL (8-23); BUN/CREATININE RATIO 16 (12-20 (CALC)); CARBON DIOXIDE 28 mmol/l (22-30); CHLORIDE 103 mmol/l (95-108); CREATININE 0.8 mg/dL (0.5-1.0); GFR FOR AFR.AMER. > 60 ML/MIN (>=60 (CALC)); GFR OTHER RACES > 60 ML/MIN (>=60 (CALC)); LIPASE 116 u/l (23-300); SGOT/AST 32 u/l (9-36); SODIUM 137 mmol/l (137-146)
[2022-06-13 18:48] LABS: ANION GAP 11 (6-22 (CALC)); BILIRUBIN, TOTAL 0.1 mg/dL (0.02-1.3); POTASSIUM 4.6 mmol/l (3.5-5.1)
[2022-06-13 20:49] LABS: URINE BILIRUBIN - DIPSTICK NEGATIVE (NEGATIVE); URINE BLOOD DIPSTICK NEGATIVE (NEGATIVE); URINE COLOR YELLOW; URINE GLUCOSE - DIPSTICK NEGATIVE (NEGATIVE); URINE KETONE NEGATIVE (NEGATIVE); URINE LEUK ESTERASE NEGATIVE (NEGATIVE); URINE NITRITE - DIPSTICK NEGATIVE (Negative); URINE PROTEIN - DIPSTICK NEGATIVE (NEG-TRACE); URINE UROBILINOGEN - DIPSTICK 0.2 E.U./dL (0.2)
[2022-06-13] MEDS ORDERED: CITRATE OF MEGNESIA PO (22:23)
[2022-06-13] MEDS ORDERED: MIRALAX17 GM PO (22:23)
== END 2022-06-13 23:09 | disposition home or self-care (01) ==
LOC: ED 17:59
PROVIDERS: Nurse Practitioner
DX: K59.00 Constipation, unspecified (principal); I10 Essential (primary) hypertension; E11.9 Type 2 diabetes mellitus without complications; J45.909 Unspecified asthma, uncomplicated; Z86.73 Personal history of transient ischemic attack (TIA), and cerebral infarction without residual deficits; Z79.84 Long term (current) use of oral hypoglycemic drugs
CPT/HCPCS: Q9967

== ENCOUNTER 2022-09-04 21:48 | Emergency (ER) | payer MEDICARE, BC ==
[~2022-09-04] VITALS: Ht 147.3 cm; Wt 52.6 kg
[~2022-09-04 21:48] MED LIST changes: +CITRATE OF MEGNESIA PO; +MIRALAX17 GM PO
[2022-09-04 22:18] LABS: BASO% 0.7 % (0-3); EOS% 31.8 % (0-8); HEMATOCRIT 33.1 % (37.0-47.0); HEMOGLOBIN 10.1 g/dl (12.0-16.0); IMMATURE GRANULOCYTES 0.1 % (0.0-5.0); LYMPH% 23.7 % (15-41); MEAN CELL VOLUME 85.5 fL CALC (80.0-100.0); MEAN CORPUSCULAR HGB 26.1 pG CALC (26.0-32.0); MEAN CORPUSCULAR HGB CONC 30.5 g/dL CAL (32.0-36.0); MONO% 6.6 % (2-13); NEUT# 3.62 thou/uL (2.00-7.15); NEUT% 37.1 % (42-76); RED BLOOD COUNT 3.87 mill/uL (4.20-5.60); RED CELL DISTRI WIDTH 15.6 % (11.5-15.5)
[2022-09-04 22:33] LABS: ALBUMIN 4.2 g/dL (3.2-5.0); BILIRUBIN, TOTAL 0.1 mg/dL (0.02-1.3); CREATININE 1.1 mg/dL (0.5-1.0); POTASSIUM 5.5 mmol/l (3.5-5.1); TOTAL PROTEIN 7.8 g/dL (6.3-8.2)
[2022-09-04] MEDS ORDERED: MIRALAX17 GM PO (22:57)
[2022-09-04 23:01] VITALS: BP 148/85
== END 2022-09-04 23:31 | disposition home or self-care (01) ==
LOC: ED 21:48
PROVIDERS: Family Medicine
DX: K59.00 Constipation, unspecified (principal); I10 Essential (primary) hypertension; E11.9 Type 2 diabetes mellitus without complications; J45.909 Unspecified asthma, uncomplicated; Z86.73 Personal history of transient ischemic attack (TIA), and cerebral infarction without residual deficits; Z79.84 Long term (current) use of oral hypoglycemic drugs

== ENCOUNTER 2022-10-04 21:25 | Emergency (ER) | payer MEDICARE, BC ==
[~2022-10-04] VITALS: Ht 147.3 cm; Wt 44.0 kg
[2022-10-04] VITALS (10 sets, daily range): BP systolic 148–192; BP diastolic 63–86
[2022-10-04 22:05] LABS: BASO% 0.9 % (0-3); EOS% 23.2 % (0-8); HEMATOCRIT 36.3 % (37.0-47.0); HEMOGLOBIN 10.8 g/dl (12.0-16.0); IMMATURE GRANULOCYTES 0.1 % (0.0-5.0); LYMPH% 19.5 % (15-41); MEAN CELL VOLUME 84.8 fL CALC (80.0-100.0); MEAN CORPUSCULAR HGB 25.2 pG CALC (26.0-32.0); MEAN CORPUSCULAR HGB CONC 29.8 g/dL CAL (32.0-36.0); MONO% 5.9 % (2-13); NEUT# 5.76 thou/uL (2.00-7.15); NEUT% 50.4 % (42-76); RED BLOOD COUNT 4.28 mill/uL (4.20-5.60); RED CELL DISTRI WIDTH 15.1 % (11.5-15.5)
[2022-10-04 22:21] LABS: ALBUMIN 4.4 g/dL (3.2-5.0); ALKALINE PHOSPHATASE 88 u/l (38-126); BUN 20 mg/dL (8-23); BUN/CREATININE RATIO 16 (12-20 (CALC)); CARBON DIOXIDE 30 mmol/l (22-30); CHLORIDE 97 mmol/l (95-108); CREATININE 1.3 mg/dL (0.5-1.0); GFR FOR AFR.AMER. 48 ML/MIN (>=60 (CALC)); GFR OTHER RACES 39 ML/MIN (>=60 (CALC)); SGOT/AST 34 u/l (9-36); SODIUM 135 mmol/l (137-146); TOTAL PROTEIN 8.1 g/dL (6.3-8.2)
[2022-10-04 22:22] LABS: ANION GAP 14 (6-22 (CALC)); BILIRUBIN, TOTAL 0.2 mg/dL (0.02-1.3); POTASSIUM 5.5 mmol/l (3.5-5.1)
[2022-10-05] VITALS (9 sets, daily range): BP systolic 155–177; BP diastolic 67–77
[2022-10-05] MEDS ORDERED: KEFLEX500 MG PO (01:55)
== END 2022-10-05 02:12 | disposition home or self-care (01) ==
LOC: ED 21:25
PROVIDERS: Emergency Medicine
DX: R07.89 Other chest pain (principal); R59.0 Localized enlarged lymph nodes; I10 Essential (primary) hypertension; E11.9 Type 2 diabetes mellitus without complications; J45.909 Unspecified asthma, uncomplicated; Z86.73 Personal history of transient ischemic attack (TIA), and cerebral infarction without residual deficits; Z79.84 Long term (current) use of oral hypoglycemic drugs

== ENCOUNTER 2023-06-12 16:30 | Emergency (ER) | payer MEDICARE, BC ==
[~2023-06-12] VITALS: Ht 147.3 cm; Wt 38.5 kg
[2023-06-12] VITALS (8 sets, daily range): BP systolic 160–194; BP diastolic 78–93
[~2023-06-12 16:30] MED LIST changes: +BUDESONID1 IN; +DULERA 50-5 MCG1 AER IN; +DULERA1 AE1 IN; +DUPIXENT; +JARDIANCE25 MG PO; +METFORMIN500 M2 PO; +OMEPRAZOLE DR40 MG PO; +SENNA/DSS1 TAB PO; +SPIRIVA RE2.5 MCG/AC; +SPS15 GM/601 PO; +VALSARTAN40 MG
[2023-06-12 18:46] LABS: BASO% 0.6 % (0-3); EOS% 16.6 % (0-8); HEMATOCRIT 35.2 % (37.0-47.0); HEMOGLOBIN 10.7 g/dl (12.0-16.0); IMMATURE GRANULOCYTES 0.1 % (0.0-5.0); LYMPH% 19.5 % (15-41); MEAN CELL VOLUME 87.8 fL CALC (80.0-100.0); MEAN CORPUSCULAR HGB 26.7 pG CALC (26.0-32.0); MEAN CORPUSCULAR HGB CONC 30.4 g/dL CAL (32.0-36.0); MONO% 6.9 % (2-13); NEUT# 6.71 thou/uL (2.00-7.15); NEUT% 56.3 % (42-76); RED BLOOD COUNT 4.01 mill/uL (4.20-5.60); RED CELL DISTRI WIDTH 15.7 % (11.5-15.5)
[2023-06-12 18:57] LABS: ALBUMIN 4.1 g/dL (3.2-5.0); ALKALINE PHOSPHATASE 76 u/l (38-126); ANION GAP 10 (6-22 (CALC)); BILIRUBIN, TOTAL 0.3 mg/dL (0.02-1.3); BUN 15 mg/dL (8-23); BUN/CREATININE RATIO 24 (12-20 (CALC)); CARBON DIOXIDE 29 mmol/l (22-30); CHLORIDE 102 mmol/l (95-108); CREATININE 0.6 mg/dL (0.5-1.0); GFR FOR AFR.AMER. > 60 ML/MIN (>=60 (CALC)); GFR OTHER RACES > 60 ML/MIN (>=60 (CALC)); POTASSIUM 4.5 mmol/l (3.5-5.1); SGOT/AST 32 u/l (9-36); SODIUM 137 mmol/l (137-146)
[2023-06-12] MEDS ORDERED: AVIDOXY100 MG PO (20:14)
[2023-06-12] MEDS ORDERED: MUPIROCIN21 TOP (20:14)
[2023-06-14] MEDS ORDERED: KEFLEX500 MG PO (13:13)
[2023-06-14] MEDS ORDERED: MUPIROCIN2 % EX (13:13)
== END 2023-06-12 21:00 | disposition home or self-care (01) ==
LOC: ED 16:30
PROVIDERS: Emergency Medicine
DX: S01.01XA Laceration without foreign body of scalp, initial encounter (principal); L08.9 Local infection of the skin and subcutaneous tissue, unspecified; X58.XXXA Exposure to other specified factors, initial encounter; I10 Essential (primary) hypertension; E11.9 Type 2 diabetes mellitus without complications; Z86.73 Personal history of transient ischemic attack (TIA), and cerebral infarction without residual deficits

== ENCOUNTER 2023-11-20 00:39 | Emergency (ER) | payer MEDICARE, BC ==
[~2023-11-20] VITALS: Ht 147.3 cm; Wt 40.0 kg
[~2023-11-20 00:39] MED LIST changes: +AVIDOXY100 MG PO; +MUPIROCIN2 % EX; +MUPIROCIN21 TOP
[2023-11-20 01:12] VITALS: BP 165/70
== END 2023-11-20 01:15 | disposition home or self-care (01) ==
LOC: ED 00:39
PROC: 0HQ1XZZ Repair Face Skin, External Approach (ICD-10-PCS; principal; 2023-11-20)
DX: S01.511A Laceration without foreign body of lip, initial encounter (principal); E11.9 Type 2 diabetes mellitus without complications; I10 Essential (primary) hypertension; W01.0XXA Fall on same level from slipping, tripping and stumbling without subsequent striking against object, initial encounter; Y92.009 Unspecified place in unspecified non-institutional (private) residence as the place of occurrence of the external cause; Z86.73 Personal history of transient ischemic attack (TIA), and cerebral infarction without residual deficits; Z79.84 Long term (current) use of oral hypoglycemic drugs

== ENCOUNTER 2023-11-27 19:25 | Emergency (ER) | payer MEDICARE, BC ==
[~2023-11-27] VITALS: Ht 147.3 cm; Wt 41.0 kg
[2023-11-27] MEDS ORDERED: traMADol HCL 50 MG/TAB PO ONE (19:35)
[2023-11-27] MEDS ORDERED: LORTAB 5/3255 MG PO (19:57)
[2023-11-27 20:15] VITALS: BP 155/84
== END 2023-11-27 20:15 | disposition home or self-care (01) ==
LOC: ED 19:25
DX: S42.302A Unspecified fracture of shaft of humerus, left arm, initial encounter for closed fracture (principal); I10 Essential (primary) hypertension; E11.9 Type 2 diabetes mellitus without complications; J44.9 Chronic obstructive pulmonary disease, unspecified; E03.9 Hypothyroidism, unspecified; E78.5 Hyperlipidemia, unspecified; W01.0XXA Fall on same level from slipping, tripping and stumbling without subsequent striking against object, initial encounter; Y92.007 Garden or yard of unspecified non-institutional (private) residence as the place of occurrence of the external cause; Z79.84 Long term (current) use of oral hypoglycemic drugs; Z91.81 History of falling; Z86.73 Personal history of transient ischemic attack (TIA), and cerebral infarction without residual deficits

== ENCOUNTER 2024-04-14 18:46 | Emergency (ER) | payer MEDICARE, BC ==
[2024-04-14] VITALS (15 sets, daily range): BP systolic 130–182; BP diastolic 63–94
[~2024-04-14] VITALS: Ht 147.3 cm; Wt 39.0 kg
[~2024-04-14 18:46] MED LIST changes: +LORTAB 5/3255 MG PO
[2024-04-14 20:23] LABS: BASO% 0.3 % (0-3); EOS% 11.1 % (0-8); HEMATOCRIT 39.1 % (37.0-47.0); HEMOGLOBIN 11.8 g/dl (12.0-16.0); IMMATURE GRANULOCYTES 0.1 % (0.0-5.0); MEAN CELL VOLUME 85.9 fL CALC (80.0-100.0); MEAN CORPUSCULAR HGB 25.9 pG CALC (26.0-32.0); MEAN CORPUSCULAR HGB CONC 30.2 g/dL CAL (32.0-36.0); MONO% 5.2 % (2-13); NEUT# 11.1 thou/uL (2.00-7.15); NEUT% 76.3 % (42-76); RED BLOOD COUNT 4.55 mill/uL (4.20-5.60)
[2024-04-14 20:35] LABS: ALBUMIN 4.3 g/dL (3.2-5.0); POTASSIUM 4.7 mmol/l (3.5-5.1); TOTAL PROTEIN 7.9 g/dL (6.3-8.2)
[2024-04-14 20:40] LABS: BILIRUBIN, TOTAL 0.2 mg/dL (0.02-1.3); CREATININE 1.5 mg/dL (0.5-1.0)
[2024-04-14] MEDS ORDERED: LIDOCAINE 4 % TOPICAL SOLUTION 50 ML TOP ONE (22:45)
[2024-04-14] MEDS ORDERED: LIDOCAINE HCL 2 % JELLY TOP ONE (23:25)
[2024-04-15 00:21] VITALS: BP 172/74
== END 2024-04-15 00:21 | disposition home or self-care (01) ==
LOC: ED 18:46
PROVIDERS: Emergency Medicine
PROC: 0HQ0XZZ Repair Scalp Skin, External Approach (ICD-10-PCS; principal; 2024-04-14)
DX: S01.01XA Laceration without foreign body of scalp, initial encounter (principal); E11.9 Type 2 diabetes mellitus without complications; I10 Essential (primary) hypertension; W18.30XA Fall on same level, unspecified, initial encounter; Y92.002 Bathroom of unspecified non-institutional (private) residence as the place of occurrence of the external cause; Z79.84 Long term (current) use of oral hypoglycemic drugs; Z86.73 Personal history of transient ischemic attack (TIA), and cerebral infarction without residual deficits

== ENCOUNTER 2024-05-25 11:30 | Emergency (ER) | payer MEDICARE, BC ==
[2024-05-25] VITALS (21 sets, daily range): BP systolic 83–168; BP diastolic 51–98
[~2024-05-25] VITALS: Ht 147.3 cm; Wt 39.0 kg
[2024-05-25 13:23] LABS: BASO% 0.7 % (0-3); EOS% 21.2 % (0-8); HEMATOCRIT 38.3 % (37.0-47.0); HEMOGLOBIN 11.4 g/dl (12.0-16.0); IMMATURE GRANULOCYTES 0.2 % (0.0-5.0); LYMPH% 11.8 % (15-41); MEAN CELL VOLUME 87.4 fL CALC (80.0-100.0); MEAN CORPUSCULAR HGB CONC 29.8 g/dL CAL (32.0-36.0); MONO% 5.5 % (2-13); NEUT# 6.13 thou/uL (2.00-7.15); NEUT% 60.6 % (42-76); RED BLOOD COUNT 4.38 mill/uL (4.20-5.60)
[2024-05-25 13:49] LABS: ALBUMIN 4.1 g/dL (3.2-5.0); CREATININE 1.1 mg/dL (0.5-1.0); TOTAL PROTEIN 7.6 g/dL (6.3-8.2)
[2024-05-25 13:54] LABS: BILIRUBIN, TOTAL 0.4 mg/dL (0.02-1.3); POTASSIUM 5.8 mmol/l (3.5-5.1)
[2024-05-25 15:23] LABS: URINE BILIRUBIN - DIPSTICK Negative (NEGATIVE); URINE BLOOD DIPSTICK Trace-intact (NEGATIVE); URINE GLUCOSE - DIPSTICK >=1000 mg/dL (NEGATIVE); URINE KETONE Negative (NEGATIVE); URINE LEUK ESTERASE Negative (NEGATIVE); URINE NITRITE - DIPSTICK Negative (Negative); URINE PROTEIN - DIPSTICK Negative (NEG-TRACE); URINE UROBILINOGEN - DIPSTICK 0.2 E.U./dL (0.2)
[2024-05-25 15:28] LABS: URINE COLOR Yellow
[2024-05-25] MEDS ORDERED: DEXTROSE 10% 500 ML BAG IV ONE (15:40)
[2024-05-25] MEDS ORDERED: SODIUM POLYSTYRENE SULFONATE 15 G/BTL POWDER PO ONE (15:40)
[2024-05-25] MEDS ORDERED: INSULIN REGULAR (HUMAN) 100 UNIT/ML INJ IV ONE (15:40)
[2024-05-25] MEDS ORDERED: SODIUM ZIRCONIUM CYCLOSILICATE 10 GM PAK PO ONE (15:50)
[2024-05-25 18:06] LABS: POTASSIUM 4.3 mmol/l (3.5-5.1)
[2024-05-25] MEDS ORDERED: TAMSULOSIN0.4 MG PO (18:54)
[2024-05-25] MEDS ORDERED: TAMSULOSIN HCL 0.4 MG CAP PO ONE (18:55)
== END 2024-05-25 18:58 | disposition home or self-care (01) ==
LOC: ED 11:30
PROVIDERS: Nurse Practitioner
DX: R33.9 Retention of urine, unspecified (principal); E87.5 Hyperkalemia; I10 Essential (primary) hypertension; E11.9 Type 2 diabetes mellitus without complications; Z86.73 Personal history of transient ischemic attack (TIA), and cerebral infarction without residual deficits; Z79.84 Long term (current) use of oral hypoglycemic drugs; Z90.710 Acquired absence of both cervix and uterus

== ENCOUNTER 2024-06-23 16:46 | Observation (INO) | payer MEDICARE, BC ==
[2024-06-23] VITALS (18 sets, daily range): BP systolic 112–176; BP diastolic 50–96
[~2024-06-23] VITALS: Ht 147.3 cm; Wt 42.3 kg
[~2024-06-23 16:46] MED LIST changes: +TAMSULOSIN0.4 MG PO
--- NOTE | 2024-06-23 19:00 | NUR ---
PATIENT TO ROOM 12 VIA WHEELCHAIR. PATIENT'S SON LIFTED PATIENT FROM WHEELCHAIR TO BED.
[2024-06-23] MEDS ORDERED: ONDANSETRON HCl 4 MG/2 ML SDV IV ONE (19:25)
[2024-06-23] MEDS ORDERED: MORPHINE SULFATE 4 MG/ML VIAL IV ONE (19:25)
[2024-06-23 19:57] LABS: BASO% 0.5 % (0-3); HEMATOCRIT 37.7 % (37.0-47.0); HEMOGLOBIN 11.3 g/dl (12.0-16.0); IMMATURE GRANULOCYTES 0.2 % (0.0-5.0); LYMPH% 8.6 % (15-41); MEAN CELL VOLUME 87.7 fL CALC (80.0-100.0); MEAN CORPUSCULAR HGB 26.3 pG CALC (26.0-32.0); MONO% 6.4 % (2-13); NEUT# 10.12 thou/uL (2.00-7.15); NEUT% 78.3 % (42-76); RED BLOOD COUNT 4.3 mill/uL (4.20-5.60); RED CELL DISTRI WIDTH 16.3 % (11.5-15.5)
--- NOTE | 2024-06-23 20:00 | NUR ---
IV PLACED, BLOOD DRAWN, AND PT MEDICATED PER MD ORDERS. RESTING IN BED. RESP EVEN AND UNLABORED. NO DISTRESS NOTED. INFORMED PT OF PLAN OF CARE AND CONTINUED WAIT TIME AND THEY VERBALIZED UNDERSTANDING. CALL LIGHT IN REACH.
[2024-06-23 20:18] LABS: ALBUMIN 4.1 g/dL (3.2-5.0); BILIRUBIN, TOTAL 0.4 mg/dL (0.02-1.3); CREATININE 1.7 mg/dL (0.5-1.0); TOTAL PROTEIN 7.5 g/dL (6.3-8.2)
[2024-06-23 20:19] LABS: POTASSIUM 5.7 mmol/l (3.5-5.1)
[2024-06-23] MEDS ORDERED: SODIUM CHLORIDE 0.9% 1,000 ML IV ONE (20:45)
--- NOTE | 2024-06-23 21:03 | NUR ---
PT CONTINUES RESTING IN BED. RESP EVEN AND UNLABORED. NO DISTRESS NOTED. VSS. REPORTS PAIN 310. INFORMED PT AND SON OF PLAN OF CARE AND CONTINUED WAIT TIME AND THEY VERBALIZED UNDERSTANDING.
--- NOTE | 2024-06-23 21:56 | NUR ---
MD BEDSIDE TO DISCUSS RESULTS AND PLAN OF CARE W/ PT
[2024-06-23] MEDS ORDERED: SODIUM CHLORIDE 0.9% 1,000 ML IV SCH (22:05)
[2024-06-23] MEDS ORDERED: MAGNESIUM HYDROXIDE 30 ML UDC PO PRN (22:30)
[2024-06-23] MEDS ORDERED: MORPHINE SULFATE 4 MG/ML VIAL IV PRN (22:30)
[2024-06-23] MEDS ORDERED: Zaleplon 5 MG/CAP PO PRN (22:30)
[2024-06-23] MEDS ORDERED: hydrALAZINE HCL 20 MG/ML VIAL(1 ML) IV PRN (22:30)
[2024-06-23] MEDS ORDERED: ACETAMINOPHEN 325 MG/TAB PO PRN (22:30)
--- NOTE | 2024-06-23 23:00 | NUR ---
SON LEAVES BEDSIDE TO GO HOME AND LEAVES CONTACT # ARI [phone] INFORMED HIM AND PT OF PLAN OF CARE AND THEY VERBALIZED UNDERSTANDING
[2024-06-24] VITALS (15 sets, daily range): BP systolic 102–158; BP diastolic 48–86
--- NOTE | 2024-06-24 00:05 | NUR ---
PT MOVED TO HOSPITAL BED AND REPOSITIONED FOR COMFORT.
--- NOTE | 2024-06-24 00:50 | NUR ---
PT MEDICATED FOR STATED 12/25 PAIN. FLUIDS INFUSING. PT RESTING IN BED. RESP EVEN AND UNLABORED. NO DISTRESS. VSS. CALL LIGHT IN REACH
--- NOTE | 2024-06-24 02:03 | NUR ---
REPORT GIVEN TO BILL GIBBS MS
--- NOTE | 2024-06-24 02:50 | NUR ---
Patient arrived in the unit at this time via bed and accompanied by ED RN. Patient on NS at 80ml/hr and oxygen at 2L NC. Patient is primary urdu speaking but understands chilean. Patient report 5/10 L hip pain. Patient is alert to self, place, and situation. No alert to time. Purewick changed. VS within parameters
--- NOTE | 2024-06-24 02:59 | NUR ---
PT TRANSPORTED TO [place] VIA BED IN STABLE CONDITION
--- NOTE | 2024-06-24 04:30 | NUR ---
Patient reports pain 10/10. Pain medication PRN given. SCD applied. Patient has no other complains at this time. VS stable
[2024-06-24 06:10] LABS: BASO% 0.8 % (0-3); EOS% 14.3 % (0-8); HEMATOCRIT 33.3 % (37.0-47.0); HEMOGLOBIN 9.9 g/dl (12.0-16.0); IMMATURE GRANULOCYTES 0.1 % (0.0-5.0); MEAN CELL VOLUME 90.2 fL CALC (80.0-100.0); MEAN CORPUSCULAR HGB 26.8 pG CALC (26.0-32.0); MEAN CORPUSCULAR HGB CONC 29.7 g/dL CAL (32.0-36.0); MONO% 6.6 % (2-13); NEUT# 6.06 thou/uL (2.00-7.15); NEUT% 65.2 % (42-76); RED BLOOD COUNT 3.69 mill/uL (4.20-5.60); RED CELL DISTRI WIDTH 16.5 % (11.5-15.5)
[2024-06-24 06:45] LABS: ALBUMIN 3.3 g/dL (3.2-5.0); BILIRUBIN, TOTAL 0.4 mg/dL (0.02-1.3); CREATININE 1.2 mg/dL (0.5-1.0); POTASSIUM 4.9 mmol/l (3.5-5.1); TOTAL PROTEIN 6.1 g/dL (6.3-8.2)
[2024-06-24] MEDS ORDERED: INSULIN LISPRO 100 UNITS/ML ML SC SCH (07:00)
--- NOTE | 2024-06-24 07:02 | NUR ---
pt sugar was 88 @0630
--- NOTE | 2024-06-24 07:44 | NUR ---
PT IS AOX3, RESPIRATIONS ARE EVEN AND SHALLOW WITH SOME EXPIRATIORY WHEEZING NOTED ON 2L, LUNGS ARE DIM AT BILATERAL BASES, UPPER LUNGS WITH SLIGHT EXPIRATORY WHEEZING. BOWEL SOUNDS ARE ACTIVE, PEDAL PULSES ARE WAEK BUT PALPABLE TO TOUCH, PT REPORTS PAIN IN LEFT LEG WITH MOVEMENT.
[2024-06-24] MEDS ORDERED: ONDANSETRON HCl 4 MG/2 ML SDV IV PRN (11:35)
[2024-06-24] MEDS ORDERED: LORTAB 5/3255 MG PO (11:53)
[2024-06-24] MEDS ORDERED: ONDANSETRON4 MG PO (11:53)
--- NOTE | 2024-06-24 13:32 | NUR ---
REVIEWED DISCHARGED INSTRUCTIONS WITH PT AND PT'S SON, REMOVED IV, PT READY FOR DISCHARGE.
--- NOTE | 2024-06-27 10:32 | NUR ---
Discharge follow up call completed 07/06/24. Pt\s son says patient is in significant pain but doing reasonably well. Patient has pain medication but they have not been taking due to opiate concerns and to patient's constipation. Son states patient has a follow up appointnment with PCP today. He questioned if the WC requested would come today and also asked about a walker. Referred questions to case management and got requested information for famil. No other needs or concerns verbalized at this time.
== END 2024-06-24 13:32 | disposition home health service (06) ==
LOC: ED 16:46 → ED-I 19:31 → ED 19:31 → ED-I 21:47 → ED 23:00 → MS2 23:01
PROVIDERS: Family Medicine; Nurse Practitioner Family; ADMIT Internal Medicine; ATTEND Internal Medicine
DX: S32.592A Other specified fracture of left pubis, initial encounter for closed fracture (principal); S32.19XA Other fracture of sacrum, initial encounter for closed fracture; E87.5 Hyperkalemia; I12.9 Hypertensive chronic kidney disease with stage 1 through stage 4 chronic kidney disease, or unspecified chronic kidney disease; E11.22 Type 2 diabetes mellitus with diabetic chronic kidney disease; N18.9 Chronic kidney disease, unspecified; E11.40 Type 2 diabetes mellitus with diabetic neuropathy, unspecified; J44.89 Other specified chronic obstructive pulmonary disease; E78.5 Hyperlipidemia, unspecified; F32.A Depression, unspecified; W01.0XXA Fall on same level from slipping, tripping and stumbling without subsequent striking against object, initial encounter; Y92.009 Unspecified place in unspecified non-institutional (private) residence as the place of occurrence of the external cause; Z91.81 History of falling; Z86.73 Personal history of transient ischemic attack (TIA), and cerebral infarction without residual deficits; Z79.84 Long term (current) use of oral hypoglycemic drugs; Z87.81 Personal history of (healed) traumatic fracture
CPT/HCPCS: G0378; J1815; J2405